=== PATIENT | male | born 1955 | race Caucasian/White ===

== ENCOUNTER 2018-04-17 19:12 | Emergency (ER) | payer OTHER, SELFPAY ==
--- NOTE | 2018-04-17 19:20 | ED_ITS ---
HPI - Arrhythmia/Palpitations General Chief Complaint: Arrhythmia/Palpitations Stated Complaint: WEAKNESS NAUSEA LIGHT HEADED Time Seen by Provider: 04/17/18 19:20 Source: patient Mode of arrival: ambulatory Limitations: no limitations History of Present Illness HPI narrative: Patient is a 62-year-old male here for evaluation of not feeling well for the past several days/weeks. He states that he has noticed that he has had decreased exercise tolerance with shortness of breath with his daily activities. He denies any chest pain. Denies any cough. No fevers. Has had a history of atrial fibrillation in the past. He is not currently on any anticoagulation for this. He states that he came in because his stated that his pulse was very irregular and that he needed to come in to be evaluated. Related Data Previous Rx's Medication Instructions Recorded rivaroxaban [Xarelto] 20 mg PO DAILY #30 tab 04/17/18 Allergies Allergy/AdvReac Type Severity Reaction Status Date / Time No Known Drug Allergies Allergy Verified 04/17/18 20:10 Review of Systems Constitutional Denies chills, Denies headache(s), Denies poor appetite and Denies weight loss Comments: Decreased exercise tolerance ENT Ears, Nose, Mouth, and Throat: Denies dizziness and Denies headache(s) Cardiovascular Denies chest pain, Denies syncope, Denies rapid heart rate, Reports irregular heart rhythm, Denies leg edema, Reports palpitations and Reports dyspnea on exertion Respiratory Denies cough and Reports dyspnea on exertion Gastrointestinal Gastrointestinal: Denies abdominal pain, Denies nausea and Denies vomiting Musculoskeletal Denies myalgias and Denies arthralgias Integumentary/Breasts Denies lesions and Denies rash Neurologic Denies behavioral changes, Denies dizziness, Denies syncope and Denies headache( s) Psychiatric Denies behavioral changes Endocrine Reports palpitations Hematologic/Lymphatic Denies easy bleeding and Denies easy bruising FOR[facility]LY [facility] Medical History Atrial fibrillation (Acute) Melanoma (Acute) Sarcoma (Acute) Surgical History S/P skin cancer resection (Acute) Exam Initial Vital Signs Initial Vital Signs: Vital Signs Temperature 97.6 F 04/17/18 19:22 Pulse Rate 72 04/17/18 19:22 Respiratory Rate 18 04/17/18 19:22 Blood Pressure 123/76 04/17/18 19:22 Pulse Oximetry 98 04/17/18 19:22 Const General: cooperative, healthy appearing, comfortable, well developed, well groomed and No acute distress Orientation: alert, awake and oriented x3 HENMT Head: normal to inspection and normocephalic Resp Effort & Inspection: normal respiratory effort and able to speak in complete sentences Auscultation: clear to auscultation bilaterally Cardio Rate: regular rate Rhythm: abnormal rhythm irregularly irregular Heart Sounds: no murmurs Pulses: radial pulses present GI Inspection: non-distended Palpation: soft, No firm and No tender Skin Lesions: no lesions Rashes: no rashes Neuro General: alert, awake and oriented x3 Extrem General: normal to inspection and capillary refill normal Psych Appearance: grossly normal and well kempt Scores CHADS-VASc Congestive heart failure: no Hypertension: no Age 75 years or older: no Diabetes mellitus: no Stroke, TIA, or TE: no Vascular disease: no Age 65 to 74 years: no Sex category (female): Male CHADS-VASc Score: 0 Course Orders Ordered: ED Orders 04/17/18 19:21 XR chest 1V Stat EKG-12 Lead Stat 04/17/18 19:40 Basic Metabolic Panel Stat Complete Blood Count AUTO DIFF Stat 04/17/18 19:53 CT chest abd pel w con Stat Discontinued Medications Sodium Chloride (Normal Saline 0.9%) 1,000 mls @ 1,000 mls/hr IV BOLUS ONE Stop: 04/17/18 20:52 Last Infusion: 04/17/18 21:23 Dose: 0 mls/hr Admin: 04/17/18 20:06 Dose: 1,000 mls/hr Rivaroxaban (Xarelto) 20 mg PO NOW ONE Stop: 04/17/18 22:13 Last Admin: 04/17/18 22:15 Dose: 20 mg Vital Signs - 8 hr 04/17/18 19:22 04/17/18 20:00 04/17/18 20:30 Temperature 97.6 F Pulse Rate 72 66 75 Respiratory Rate 18 Blood Pressure 123/76 Blood Pressure [Right Arm] 136/86 126/86 Pulse Oximetry 98 97 04/17/18 22:26 Temperature Pulse Rate 70 Respiratory Rate 16 Blood Pressure 138/83 Blood Pressure [Right Arm] Pulse Oximetry 99 MDM - Arrhythmia/Palpitations Lab Data Attestation: I reviewed the patient's lab results. Result diagrams: 04/17/18 19:40 04/17/18 19:40 Lab Results 04/17/18 04/17/18 Range/Units 19:40 19:40 WBC 7.0 (4.5-11.0) X10^3/uL RBC 5.05 (4.5-5.9) X10^6/uL Hgb 16.2 (13.5-17.5) g/dL Hct 46.0 (41-53) % MCV 91.1 (80-100) fL MCH 32.1 (26-34) PG MCHC 35.3 (30-36) % RDW 12.6 (11.6-14.8) % Plt Count 250 (150-400) X10^3/uL Neut % (Auto) 64.4 (50-75) % Lymph % (Auto) 23.2 L (25-40) % Person % (Auto) 10.1 (3-14) % Eos % (Auto) 1.5 L (2-4) % Baso % (Auto) 0.8 (0-2) % Neut # (Auto) 4500 (2076-2967) /uL Sodium 142 (137-145) mmol/L Potassium 4.2 (3.4-5.1) mmol/L Chloride 105 (98-107) mmol/L Carbon Dioxide 28 (22-32) mmol/L BUN 10 (9-20) mg/dL Creatinine 0.80 (0.66-1.25) mg/dL Estimated GFR > 60.0 (>60) mL/min BUN/Creatinine Ratio 12.5 (6-22) Glucose 99 (80-110) mg/dL Calcium 9.5 (8.4-10.2) mg/dL Imaging Data Chest x-ray: Radiologist's impression: [address] [address] XRay Report Signed Patient: PERFECTO DONALDSON EMR#: [id number] : 6Acct:[id number] Age/Sex: 62 / MDate of Service: 04/17/18 Loc: ED Accession Number: [id number] Procedure: XR chest 1V Ordering Provider: Robson Betancourt D.O. PROCEDURE: XR CHEST 1V INDICATIONS: palpitations TECHNIQUE: One view of the chest was acquired. COMPARISON: None. FINDINGS: Surgical changes and devices: None. Lungs and pleura: No pleural effusions or pneumothorax. Numerous soft tissue density nodules or masses are seen scattered throughout bilateral lung taylor measures up to 4.5 x 3.7 cm in size in right upper lung field. Finding is suggestive of extensive pulmonary metastasis.. Mediastinum: Mediastinal contours appear normal. Heart size is normal. Bones and chest wall: No suspicious bony lesions. Overlying soft tissues appear unremarkable. IMPRESSION: Suggestion of extensive metastatic disease throughout bilateral lung taylor. No pneumothorax. Dictated by: Cipriano Alvarez M.D. on 04/17/2018 at 19:49 Approved by: Cipriano Alvarez M.D. on 04/17/2018 at 19:51 CT chest abdomen pelvis: Radiologist's impression: PROCEDURE: CT CHEST ABD PEL W CON INDICATIONS: hx of CA with lung findings concern for mets TECHNIQUE: After the administration of intravenous contrast, 5 mm thick sections acquired from the lung apices to the symphysis. 2.5 mm thick coronal and sagittal reformats were acquired. Additional 7 mm thick coronal maximum intensity projection (MIP) reformats acquired through the lungs. Optional 10-minute delayed imaging may be performed from the kidneys to the bladder. For radiation dose reduction, the following was used: automated exposure control, adjustment of mA and/or kV according to patient size. COMPARISON: [facility], , XR CHEST 1V, 04/17/2018, 19:29. FINDINGS: Image quality: Excellent. CHEST: Lungs: Innumerable soft tissue density nodules and masses are seen scattered throughout bilateral lung taylor measures up to 4 x 4.7 x 3.8 cm in size in right upper lobe posterior aspect. Largest lesion in left lung field measures 2.1 x 2.2 cm in size in posterior aspect of left lower lobe. Finding is consistent with extensive pulmonary metastatic disease. No pneumothorax or hemothorax. Central and peripheral airways appear patent and normal in caliber. Mediastinum: No mediastinal hematomas. Heart size is normal. No pericardial effusion. Thoracic aorta and pulmonary arteries demonstrate normal size and enhancement. Subcentimeter lymph nodes are seen scattered in mediastinum and right hilar region measures up to 8 mm in short axis diameter. Esophagus is normal in caliber. There is a small hiatal hernia. Chest wall: No rib fractures. No subcutaneous emphysema. No axillary or supraclavicular adenopathy. Thyroid gland is within normal limits. ABDOMEN: Solid organs: Liver is normal in size and enhancement. Mild hepatic stale ptosis is seen. Gallbladder is surgically absent. Biliary system is non-dilated. Pancreas enhances normally, without transection. Spleen is normal in size and enhancement, without lacerations. No adrenal hematomas. Both kidneys enhance normally, without hydronephrosis or renal stones. Small bilateral renal cysts are seen measures up to 1.2 cm in size in midpole of left kidney. No perinephric fat stranding or fluid. Peritoneum and bowel: No free fluid or air. Unenhanced bowel loops demonstrate normal wall thickness and caliber. Mild sigmoid diverticulosis is seen, no CT evidence of acute diverticulitis. Nodes and vessels: No retroperitoneal or mesenteric adenopathy. Aorta and inferior vena cava are normal in size and enhancement. Miscellaneous: No ventral hernias. PELVIS: Genitourinary: Bladder wall thickness is normal. Miscellaneous: No inguinal hernias or adenopathy. Bones: Pelvic ring and hip joints appear intact. No vertebral compression fractures. 9 mm lytic lesion with sclerotic margin is noted involving left iliac bone adjacent to sacroiliac joint. 2.1 x 1.4 cm lytic area involving right iliac bone is seen. There is also a 2 x 0.8 cm lytic area involving the lateral aspect of right iliac bone. 1.4 cm lytic area is seen in right acetabular roof. Suggestion of a 2.1 cm lytic lesion involving posterior aspect of T11 vertebral body is also seen extending to right posterior element. IMPRESSION: 1. Innumerable bilateral pulmonary nodules and masses with the largest lesion in right upper lobe concerning for extensive pulmonary metastatic disease. 2. Multiple lytic lesions scattered in bony pelvis and T11 vertebral body as described above suspicious for bony metastatic disease. 3. Subcentimeter lymph nodes are seen in mediastinum. No evidence of abnormally enlarged lymph nodes seen in chest, abdomen or pelvis. 4. No bowel obstruction. No free fluid or free air. Dictated by: Cipriano Alvarez M.D. on 04/17/2018 at 20:58 Approved by: Cipriano Alvarez M.D. on 04/17/2018 at 21:10 ECG Data Attestation: I personally reviewed and interpreted this ECG as follows: Prior ECG tracings: not available for review Interpretation: Atrial fibrillation Ventricular rate is 75 Normal axis Normal QRS Normal QTC No ST T wave changes MDM Narrative Medical decision making narrative: Patient is very healthy appearing. 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 He also had melanoma on his left cheek that was resected approximately 1 year ago. He is new to the area. Does not have a primary care doctor. It appears that he has been in atrial fibrillation in the past. From his history it sounds like this is paroxysmal AFib. He is in atrial fibrillation today but is rate controlled. He states that he thinks that with his last episode of atrial fibrillation he converted on his own. Patient presents today with fairly vague symptoms. After his EKG showed that he was in atrial fibrillation and chest x-ray was ordered. This did show bilateral nodules. Given his history of melanoma this is very concerning for metastatic disease. I ordered a CT scan of his chest abdomen pelvis which is very concerning for extensive metastatic disease to include his lungs and also his bone. I did discuss all of this with the patient. His was at bedside. I discussed the case with Dr. Greenfield with Oncology as well. I gave the patient information to the oncologist. He states that his office would call the patient on Friday morning for a follow-up in to start treatment. I did inform the patient that I suspect that findings we found on the CT scan today and was like the results of his exercise intolerance over the past days/ weeks. I also informed him that since we are unsure when he or started atrial fibrillation cardioversion here in the emergency department was not appropriate. He does have a low chads score however I feel starting him on anticoagulation is not unreasonable given his extensive metastatic disease. We did discuss the risks and benefits of this medication. He was given a 1st dose here in the ER and a prescription to fill tomorrow. We also discussed the importance of him contacting his insurance company to make sure that he is established here in this area and to call the local primary care groups to establish primary care follow-up. She was given return precautions. He expressed understanding of this extensive discussion of the findings on his CT scan today. Expressed agreement plan. Discharge Plan Departure Patient Disposition: Home Clinical Impression: Atrial fibrillation, Lung mass Discharge Date/Time: 04/17/18 22:28 Interventions: ED Discharge Assessment Last Done: 04/17/18 22:26 Instructions: DI for Atrial Fibrillation Activity Restrictions/Additional Instructions: The CT scans that were performed today is very concerning for cancer metastasis to your lungs and also your bone. I discussed her case with Dr. Greenfield with Oncology who took down your information and expect a call from his office on Friday morning. I would also highly recommend you contact your insurance company and set up a primary care doctor in the local area. We also started you on any anticoagulation secondary to the atrial fibrillation. This does need to be followed up by her primary doctor and also a brass chaser. You can return to the emergency department at any time for new or worsening symptoms Prescriptions: New rivaroxaban [Xarelto] 20 mg tablet 20 mg PO DAILY Qty: 30 RF: 0 Stand Alone Forms: Work/School Restrictions
[2018-04-17 19:22] VITALS: BP 123/76; PULSE 72; RESP 18; TEMP 36.4; O2SAT 98; BMI 24.1
--- NOTE | 2018-04-17 19:47 | PC.NURSE ---
pt reports about two weeks ago he helped his duaghter move and hurt his back. since then he has been fatigued and experiencing loss of apetite and heart palpations. pt has hx of afib but it was a long time ago and he has no memory about what was done to him for his a fib. reports taking an 81mg asprin po today before coming in. reports no other anticoags taken.
--- NOTE | 2018-04-17 19:53 | DI.CT.S_ITS ---
PROCEDURE: CT CHEST ABD PEL W CON INDICATIONS: hx of CA with lung findings concern for mets TECHNIQUE: After the administration of intravenous contrast, 5 mm thick sections acquired from the lung apices to the symphysis. 2.5 mm thick coronal and sagittal reformats were acquired. Additional 7 mm thick coronal maximum intensity projection (MIP) reformats acquired through the lungs. Optional 10-minute delayed imaging may be performed from the kidneys to the bladder. For radiation dose reduction, the following was used: automated exposure control, adjustment of mA and/or kV according to patient size. COMPARISON: [facility], CR, XR CHEST 1V, 04/17/2018, 19:29. FINDINGS: Image quality: Excellent. CHEST: Lungs: Innumerable soft tissue density nodules and masses are seen scattered throughout bilateral lung taylor measures up to 4 x 4.7 x 3.8 cm in size in right upper lobe posterior aspect. Largest lesion in left lung field measures 2.1 x 2.2 cm in size in posterior aspect of left lower lobe. Finding is consistent with extensive pulmonary metastatic disease. No pneumothorax or hemothorax. Central and peripheral airways appear patent and normal in caliber. Mediastinum: No mediastinal hematomas. Heart size is normal. No pericardial effusion. Thoracic aorta and pulmonary arteries demonstrate normal size and enhancement. Subcentimeter lymph nodes are seen scattered in mediastinum and right hilar region measures up to 8 mm in short axis diameter. Esophagus is normal in caliber. There is a small hiatal hernia. Chest wall: No rib fractures. No subcutaneous emphysema. No axillary or supraclavicular adenopathy. Thyroid gland is within normal limits. ABDOMEN: Solid organs: Liver is normal in size and enhancement. Mild hepatic stale ptosis is seen. Gallbladder is surgically absent. Biliary system is non-dilated. Pancreas enhances normally, without transection. Spleen is normal in size and enhancement, without lacerations. No adrenal hematomas. Both kidneys enhance normally, without hydronephrosis or renal stones. Small bilateral renal cysts are seen measures up to 1.2 cm in size in midpole of left kidney. No perinephric fat stranding or fluid. Peritoneum and bowel: No free fluid or air. Unenhanced bowel loops demonstrate normal wall thickness and caliber. Mild sigmoid diverticulosis is seen, no CT evidence of acute diverticulitis. Nodes and vessels: No retroperitoneal or mesenteric adenopathy. Aorta and inferior vena cava are normal in size and enhancement. Miscellaneous: No ventral hernias. PELVIS: Genitourinary: Bladder wall thickness is normal. Miscellaneous: No inguinal hernias or adenopathy. Bones: Pelvic ring and hip joints appear intact. No vertebral compression fractures. 9 mm lytic lesion with sclerotic margin is noted involving left iliac bone adjacent to sacroiliac joint. 2.1 x 1.4 cm lytic area involving right iliac bone is seen. There is also a 2 x 0.8 cm lytic area involving the lateral aspect of right iliac bone. 1.4 cm lytic area is seen in right acetabular roof. Suggestion of a 2.1 cm lytic lesion involving posterior aspect of T11 vertebral body is also seen extending to right posterior element. IMPRESSION: 1. Innumerable bilateral pulmonary nodules and masses with the largest lesion in right upper lobe concerning for extensive pulmonary metastatic disease. 2. Multiple lytic lesions scattered in bony pelvis and T11 vertebral body as described above suspicious for bony metastatic disease. 3. Subcentimeter lymph nodes are seen in mediastinum. No evidence of abnormally enlarged lymph nodes seen in chest, abdomen or pelvis. 4. No bowel obstruction. No free fluid or free air. Dictated by: Cipriano Alvarez M.D. on 04/17/2018 at 20:58 Approved by: Cipriano Alvarez M.D. on 04/17/2018 at 21:10
[2018-04-17 19:59] LABS: Add Manual Diff / Slide Review NO; Basophils Percent Auto 0.8 % (0-2); Eosinophils Percent Auto 1.5 % (2-4); Hemoglobin 16.2 g/dL (13.5-17.5); Lymphocytes Percent Auto 23.2 % (25-40); Mean Corpuscular HGB Conc 35.3 % (30-36); Mean Corpuscular Hemoglobin 32.1 PG (26-34); Mean Corpuscular Volume 91.1 fL (80-100); Monocytes Percent Auto 10.1 % (3-14); Neutrophils Absolute Auto 4500 /uL (3000-5900); Neutrophils Percent Auto 64.4 % (50-75); Platelet Count 250 X10^3/uL (150-400); Red Blood Cell Count 5.05 X10^6/uL (4.5-5.9); Red Cell Distribution Width 12.6 % (11.6-14.8)
[2018-04-17 20:00] VITALS: BP 136/86; PULSE 66; O2SAT 97
[2018-04-17 20:04] LABS: BUN Creatinine Ratio 12.5 (6-22); Blood Urea Nitrogen 10 mg/dL (9-20); Calcium 9.5 mg/dL (8.4-10.2); Carbon Dioxide 28 mmol/L (22-32); Chloride 105 mmol/L (98-107); Estimated Glomerular Filt Rate > 60.0 mL/min (>60); Glucose 99 mg/dL (80-110); HEMOLYSIS 17 (0-50); Potassium 4.2 mmol/L (3.4-5.1); Sodium 142 mmol/L (137-145)
[2018-04-17] MEDS: SODIUM CHLORIDE 0.9% 1,000 ML 1000 ML IV (20:06)
[2018-04-17 20:30] VITALS: BP 126/86; PULSE 75
[2018-04-17] MEDS: RIVAROXABAN 10 MG TABLET 20 MG PO (22:15)
[2018-04-17 22:26] VITALS: BP 138/83; PULSE 70; RESP 16; O2SAT 99
== END 2018-04-17 22:28 | disposition home or self-care (01) ==
PROVIDERS: Emergency Provider Emergency Medicine
DX: I48.91 Unspecified atrial fibrillation (principal); R91.8 Other nonspecific abnormal finding of lung field
CPT/HCPCS: 36591; 71045; 71260; 74177; 80048; 85025; 93005; 96360; 99283; 99285; Q9967

== ENCOUNTER → 2018-06-30 11:52 | Outpatient (CLI) | payer OTHER, SELFPAY ==
--- NOTE | 2018-06-30 12:21 | DI.RAD.S_ITS ---
PROCEDURE: XR RIBS RT 2V INDICATIONS: AND BACK PAIN TECHNIQUE: 3 views of the right ribs were acquired. COMPARISON: [facility], CT, CT CHEST ABD PEL W CON, 04/17/2018, 20:19. FINDINGS: Innumerable pulmonary nodules are again noted. There are no definite or displaced rib fractures. A lucency projects within the right 11th rib, measuring approximately 2 cm suggestive of lytic osseous metastasis. IMPRESSION: No definite fracture seen. Probable right 11th rib lytic osseous metastasis. This could be confirmed with cross-sectional imaging Innumerable pulmonary nodules as before. Dictated by: Ulices Pop M.D. on 06/30/2018 at 14:05 Approved by: Ulices Pop M.D. on 06/30/2018 at 14:12
--- NOTE | 2018-06-30 12:21 | DI.RAD.S_ITS ---
PROCEDURE: XR LUMBAR SPINE 2-3V INDICATIONS: AND BACK PAIN TECHNIQUE: 3 views of the lumbar spine were acquired. COMPARISON: Located [facility], CT, CT CHEST ABD PEL W CON, 04/17/2018, 20:19. FINDINGS: Bones: 4 nonrib-bearing lumbar vertebra and hypoplastic ribs. No fracture or focal osseous destruction. Diffuse facet arthropathy. Trace retrolisthesis of L1 on L2. Moderate narrowing of the L5-S1 disc space as well as the T12-L1 disc space. Dextrocurvature is noted. Soft tissues: Overlying bowel gas pattern is normal. No suspicious soft tissue calcifications. IMPRESSION: Multilevel thoracolumbar disc degeneration most pronounced at T12-L1 and L5-S1. Diffuse facet arthropathy. Dextro scoliosis. Hypoplastic ribs and 4 nonrib-bearing vertebra. Dictated by: Ulices Pop M.D. on 06/30/2018 at 13:56 Approved by: Ulices Pop M.D. on 06/30/2018 at 14:03
== END ==
PROVIDERS: PCP Family Medicine; Visit Provider Family Medicine
DX: R07.81 Pleurodynia (principal); M54.9 Dorsalgia, unspecified; M51.35 Other intervertebral disc degeneration, thoracolumbar region; M51.37 Other intervertebral disc degeneration, lumbosacral region; M47.816 Spondylosis without myelopathy or radiculopathy, lumbar region; M41.9 Scoliosis, unspecified; R91.8 Other nonspecific abnormal finding of lung field
CPT/HCPCS: 71100; 72100

== ENCOUNTER → 2020-08-18 08:35 | Outpatient (CLI) | payer MEDICARE, SELFPAY ==
[2020-08-18] MEDS: COVID-19 VACC #1, MRNA(MOD) 100 MCG/0.5 ML VIAL IM (08:48)
== END ==
PROVIDERS: PCP Family Medicine; Visit Provider Internal Medicine
DX: Z23 Encounter for immunization (principal)
CPT/HCPCS: 0011A; 91301

== ENCOUNTER → 2020-09-14 15:40 | Outpatient (CLI) | payer MEDICARE, SELFPAY ==
[2020-09-14] MEDS: COVID-19 VACC #2, MRNA(MOD) 100 MCG/0.5 ML VIAL IM (15:44)
== END ==
PROVIDERS: PCP Family Medicine; Visit Provider Internal Medicine
DX: Z23 Encounter for immunization (principal)
CPT/HCPCS: 0012A; 91301

== ENCOUNTER 2021-06-27 16:05 | Observation (INO) | payer MEDICARE, OTHER, SELFPAY ==
[2021-06-27] VITALS (9 sets, daily range): BP systolic 119–143; BP diastolic 69–88; PULSE 51–67; RESP 16–21; TEMP 36.7–36.8; O2SAT 95–100; BMI 24.4; BMI 24.8
--- NOTE | 2021-06-27 | DI.US.S_ITS ---
PROCEDURE: US CAROTID DOPPLER BI INDICATIONS: CEREBRAL VASCULAR ACCIDENT TECHNIQUE: Color and pulse Doppler interrogation was performed of both carotid systems, with image documentation and velocity measurements. COMPARISON: Outside [facility], CT, CT SOFT TISSUE NECK WITH CONTRAST, 12/29/2018, 11:39. FINDINGS: Stenosis calculations are based on SRU (Society of Radiologists in Ultrasound) criteria. Right side: Brachial blood pressure: 115/67 mm Hg. Common carotid artery peak systolic velocity: 104 cm/sec. Internal carotid artery peak systolic velocity: 72 cm/sec. Internal carotid artery end diastolic velocity: 25 cm/sec. External carotid artery peak systolic velocity: 98 cm/sec. ICA/CCA peak systolic ratio: 0.7. Lyle scale imaging description: No significant calcified plaque. Percent internal carotid artery stenosis: Less than 50% stenosis. Vertebral artery: Flow direction is antegrade. Left side: Brachial blood pressure: 121/69 mm Hg. Common carotid artery peak systolic velocity: 98 cm/sec. Internal carotid artery peak systolic velocity: 76 cm/sec. Internal carotid artery end diastolic velocity: 29 cm/sec. External carotid artery peak systolic velocity: 91 cm/sec. ICA/CCA peak systolic ratio: 0.8. Lyle scale imaging description: No significant calcified plaque. Percent internal carotid artery stenosis: Less than 50% stenosis. Vertebral artery: Flow direction is antegrade. IMPRESSION: 1. Right ICA: Less than 50% stenosis. 2. Left ICA: Less than 50% stenosis. 3. Antegrade flow in the bilateral vertebral arteries. Dictated by: Amauri Lebron M.D. on 06/28/2021 at 9:14 Approved by: Amauri Lebron M.D. on 06/28/2021 at 9:19
--- NOTE | 2021-06-27 | DI.ECHO.S_ITS ---
[facility] +---------+ : : [address] : : : : [id number] : : : : Phone: [phone]+ Echocardiogram Report + + :Name: PERFECTO DONALDSON Study Date: 06/28/2021 Height: 73 in : :[facility] ReadingLocation: Weight: 195 lb : : Gender: Male BSA: 2.1 m2 : :: 1955 Age: 65 yrs BP: 126/73 mmHg: :Reason For Study: CVA : :Ordering Physician: PRESLEY, : :COMFORT Mc Performed By: Akilah Mclaughlin : :Referring: COMFORT SHERWOOD : + + Interpretation Summary Left ventricular systolic function appears normal without any focal wall motion abnormality with an estimated ejection fraction of 55 to 65% with considerable scpt-sh-rper variability due to the atrial fibrillation. Left ventricular size and wall thickness appear normal. Assessment of diastolic function is challenging in the setting of atrial fibrillation but there is no evidence for significantly increased filling pressures. The right ventricle is at the upper limits of normal with normal systolic function. Right ventricular systolic pressure cannot be estimated but CVP is likely around 3 mmHg. There is severe left atrial enlargement and moderate right atrial enlargement. There is no evidence for an interatrial shunt based on Doppler interrogation and injection of echo saline contrast. There is mild mitral regurgitation but no other significant valvular abnormality. The aortic root and ascending aorta are borderline enlarged. The patient was in atrial fibrillation at 48-71 bpm during the exam which itself is a potential source of CVA. Procedure: A two-dimensional transthoracic echocardiogram with color flow and Doppler was performed. The study quality was technically adequate. There is no prior echocardiogram noted for this patient. A saline contrast injection was performed to assess for cardiac shunting. The injection was performed through an intravenous line in the right arm. The patient was in atrial fibrillation with heart rates between 48-71 bpm during the exam. Left Ventricle: The left ventricle is normal in size and wall thickness. Left ventricular systolic function appears normal without focal wall motion abnormalities. Left ventricular ejection fraction is estimated to be 55 to 65% with considerable kade-ta-eogb variability due to atrial fibrillation. Diastolic function could not be accurately assessed due to atrial fibrillation. Right Ventricle: The right ventricle is borderline dilated. The right ventricular systolic function is normal. Atria: The left atrium is severely dilated. The right atrium is moderately dilated. There is no Doppler evidence for an interatrial shunt. Injection of contrast documented no interatrial shunt. Mitral Valve: The mitral valve leaflets appear normal. There is no evidence of stenosis, fluttering, or prolapse. There is mild mitral regurgitation. Aortic Valve: The aortic valve is trileaflet. The aortic valve opens well. There is no aortic valve stenosis. No aortic regurgitation is present. Tricuspid Valve: The tricuspid valve is normal in structure and function. There is trace tricuspid regurgitation. Pulmonary artery pressures cannot be estimated because of the lack of a measurable TR jet velocity but the IVC suggests a CVP of around 3 mmHg. Pulmonic Valve: The pulmonic valve leaflets are thin and pliable; valve motion is normal. There is no pulmonic valvular regurgitation. There is no other significant valvular heart disease. Great Vessels: The aortic root is borderline dilated. The ascending aorta is at the upper limits of normal in size. The IVC is of normal diameter and collapses greater than 50% with a sniff. This suggests a low right atrial pressure of 3 mm Hg. Pericardium/ Pleura There is no pericardial effusion. There is no pleural effusion. MMode/2D Measurements & Calculations LVIDd: 4.2 cm LVOT diam: 2.0 cm LVIDs: 2.7 cm Ao root diam: 3.9 cm FS: 37.2 % asc Aorta Diam: 3.5 cm IVSd: 0.92 cm Ao Arch Diam (Prox Trans): 3.2 cm LVPWd: 0.91 cm LV dominguez. diameter/BSA (cm/m^2): 2.0 LV sys. diameter/BSA (cm/m^2): 1.2 LA A2 area: 33.6 cm2 RA long axis: 6.1 cm LA A4 area: 26.7 cm2 RA area: 25.1 cm2 LA length (vol): 6.3 cm RA vol: 87.3 ml LA vol: 120.7 ml RA : 41.0 ml/m2 LA vol index: 56.7 ml/m2 IVC diam: 2.2 cm RVD1 (basal): 4.3 cm TAPSE: 2.2 cm Doppler Measurements & Calculations Ao V2 max: 108.3 cm/sec LVOT Max Ulises: 95.0 cm/sec Ao V2 mean: 75.8 cm/sec LV V1 max P.6 mmHg Ao max P.7 mmHg LV V1 VTI: 18.2 cm Ao mean P.6 mmHg ANGELIQUE(I,D): 2.8 cm2 Ao V2 VTI: 20.5 cm ANGELIQUE(V,D): 2.8 cm2 sev ratio: 0.89 ANGELIQUE indexed to BSA (cm^2/m^2): 1.3 MV E max ulises: 73.8 cm/sec PA V2 max: 96.1 cm/sec MV A max ulises: 0.54 cm/sec PA V2 mean: 62.8 cm/sec MV E/A: 136.5 PA mean P.8 mmHg Med Peak E' Ulises: 11.2 cm/sec PA pr(Accel): 31.0 mmHg E/E' med: 6.6 Lat Peak E' Ulises: 16.7 cm/sec E/E' lat: 4.4 E/e' average: 5.5 MV dec time: 0.17 sec SV(LVOT): 57.9 ml Reading Physician:11:35 AM
--- NOTE | 2021-06-27 16:22 | DI.CT.S_ITS ---
PROCEDURE: CT HEAD/BRAIN WO CON INDICATIONS: Left-sided weakness TECHNIQUE: Noncontrast 4.5 mm thick angled axial sections acquired from the foramen magnum to the vertex, with coronal and sagittal reformats. For radiation dose reduction, the following was used: automated exposure control, adjustment of mA and/or kV according to patient size. COMPARISON: Outside Film, MR, MR BRAIN WITH/WITHOUT CONTRAST, 04/20/2019, 9:02. FINDINGS: Image quality: Excellent. CSF spaces: Basal cisterns are patent. No extra-axial fluid collections. Ventricles are normal in size and shape. Brain: No midline shift. Left frontal lobe hyperdense lesion measuring 0.6 cm, (2/24). Right parietal lobe hyperdense lesion measuring 0.8 cm, (2/21). These appear unchanged compared to MRI brain 04/20/2019. These lesions are intrinsically T1 hyperintense on the prior MRI. No new lesions identified. No area of hypodensity in a large vascular distribution to suggest acute infarction. Periventricular hypodensity consistent with chronic microvascular ischemic change. Age-related parenchymal loss. Skull and face: Calvarium and visualized facial bones are intact, without suspicious lesions identified. Sinuses: Visualized sinuses and mastoids are clear. IMPRESSION: No acute intracranial abnormality demonstrated. Left frontal lobe and right parietal lobe hyperdense lesions appear unchanged compared to MRI from 2019. These are most consistent with prior melanoma metastases. No new lesions identified. Consider MRI brain with IV contrast for further evaluation. Dictated by: Amauri Lebron M.D. on 06/27/2021 at 16:34 Approved by: Amauri Lebron M.D. on 06/27/2021 at 16:40
--- NOTE | 2021-06-27 16:49 | DI.MRI.S_ITS ---
PROCEDURE: MR HEAD/BRAIN WO/W CON INDICATIONS: Melanoma with brain Mets and left-sided weakness TECHNIQUE: Noncontrast axial T1 spin echo, axial T2 fast spin echo, sagittal and axial FLAIR, coronal T2 fast spin echo, axial gradient echo, axial diffusion and ADC through the brain. After the administration of contrast, axial and coronal T1 spin echo with fat saturation through the brain. COMPARISON: [facility], CT, CT HEAD/BRAIN WO CON, 06/27/2021, 16:30. Outside Film, MR, MR BRAIN WITH/WITHOUT CONTRAST, 04/20/2019, 9:02. FINDINGS: Image quality: Excellent. CSF spaces: Basal cisterns are patent. No extra-axial fluid collections. Ventricles are normal in size and shape. Brain: No midline shift. No intracranial bleeds or masses. High T1 intensity focus within the right posteromedial parietal lobe, corresponding to the site of melanoma seen previously which demonstrates postcontrast enhancement on the current examination, which is decreased in prominence. There is cerebral volume loss for age. There is periventricular white matter chronic small vessel ischemic change. The brainstem appears normal. Diffusion-weighted images demonstrate a moderate size region of elevated signal intensity within the right frontoparietal lobe junction which demonstrates low ADC map, and mild FLAIR signal elevation. No chronic ischemic insults. Normal intravascular flow voids are present. Skull and face: Calvarial marrow is normal in signal. Orbits appear normal. Sinuses: Sinuses and mastoids appear clear. IMPRESSION: 1. Early subacute infarct within the right frontoparietal lobe. 2. Decreased right parietal lobe melanoma metastasis. Dictated by: Viral Cerna M.D. on 06/27/2021 at 17:05 Approved by: Viral Cerna M.D. on 06/27/2021 at 17:08
--- NOTE | 2021-06-27 16:55 | ED.NEUROSD ---
HPI - Neuro Symptoms/Deficit General Chief Complaint: Neuro Symptoms/Deficit Stated Complaint: sudden left sided numbness Time Seen by Provider: 06/27/21 16:22 Source: patient Mode of arrival: Ambulatory History of Present Illness HPI Narrative: Patient is a 65-year-old male. Not on anticoagulation. Has a distant history of atrial fibrillation. Has known metastatic melanoma. Is currently undergoing treatment for this. Here for evaluation of symptoms that occurred prior to arrival. He states that he was standing in his kitchen. He states that his left hand started to go numb. He had difficulty with coordination. His also states that he was having issues with walking. There was no speech issues. Patient again aspirin prior to arrival. Upon arrival his symptoms have completely resolved. The time my evaluation he states that he is feeling back to normal. No headache. No vision changes. No chest pain. No shortness of breath. No palpitations. No abdominal pain. No nausea vomiting. Currently no neurologic symptoms. On Anticoagulants: No Related Data Previous Rx's Medication Instructions Recorded rivaroxaban 20 mg tablet (Xarelto) 20 mg PO DAILY #30 tab 04/17/18 Allergies Allergy/AdvReac Type Severity Reaction Status Date / Time No Known Drug Allergies Allergy Verified 04/17/18 20:10 Review of Systems Constitutional Constitutional: Denies fever(s) and Denies headache(s) Eyes Eyes: Denies change in vision ENT Ears, Nose, Mouth, and Throat: Denies headache(s) Cardiovascular Cardiovascular: Denies chest pain and Denies dyspnea Respiratory Respiratory: Denies dyspnea Gastrointestinal Gastrointestinal: Denies abdominal pain Genitourinary Genitourinary: Reports system reviewed and no additional complaints, except as documented Musculoskeletal Musculoskeletal: Reports system reviewed and no additional complaints, except as documented Integumentary/Breasts Skin/Breast: Reports system reviewed and no additional complaints, except as documented Neurologic Neurologic: Reports system reviewed and no additional complaints, except as documented, Reports as per HPI and Denies headache(s) Hematologic/Lymphatic On Anticoagulants: No Allergic/Immunologic Allergic/Immunologic: Reports system reviewed and no additional complaints, except as documented Patient History Medical History (Updated 06/27/21 @ 18:55 by Robson Betancourt DO) Atrial fibrillation Melanoma Sarcoma Surgical History S/P skin cancer resection Social History Smoking Status: Never smoker Smoking Status: Never smoker alcohol intake frequency: a few times a month Substance Use Type: marijuana Exam Initial Vital Signs Initial Vital Signs: Vital Signs Temperature 98.2 F 06/27/21 16:16 Pulse Rate 65 06/27/21 16:16 Respiratory Rate 20 06/27/21 16:16 Blood Pressure 138/69 06/27/21 16:16 Pulse Oximetry 100 06/27/21 16:16 Const General: cooperative, comfortable and well developed Limitations: mental status not altered HENMT Head: normal to inspection and normocephalic Chest Chest: normal inspection of the chest Resp Effort & Inspection: normal respiratory effort Auscultation: clear to auscultation bilaterally Cardio Rate: regular rate Rhythm: regular rhythm GI Inspection: non-distended Palpation: soft Back/Spine/Pelvis Back: normal to inspection Skin General: no rashes or lesions noted Neuro General: patient alert, patient awake, patient oriented x3 and moves all extremities Cognition: normal cognition Speech: speech normal Motor: muscle tone normal throughout Sensory Exam: no sensory deficits noted Coordination: abinwb-cp-dyyl test normal Extrem General: normal to inspection and capillary refill normal Psych Appearance: grossly normal and well kempt Scores GCS Aron coma scale eye opening: Spontaneous Aron coma scale verbal response: Orientated [place] coma scale motor response: Obey commands Aron coma scale total score: 15 NIH Stroke Scale Level of Conciousness: Alert, keenly responsive Ask month/age: Answers both questions correctly. Open/close eyes, close hand: Performs both tasks correctly Best gaze horizontal: Normal Visual taylor: No visual loss Facial palsy: Normal symetrical movement Left arm drift: No drift for full 10 sec Right arm drift: No drift for full 10 sec Left leg drift: No drift for full 5 sec Right leg drift: No drift for full 5 sec Limb ataxia: Absent Sensory on face/arms/legs: Normal, no sensory loss Best language: No aphasia, normal Dysarthria: Normal Extinction or inattention: No abnormality Total NIH Stroke scale score: 0 Course Orders Ordered: ED Orders 06/27/21 16:22 CT head/brain wo con Stat 06/27/21 16:49 MR head/brain wo/w con Stat 06/27/21 16:50 Complete Blood Count AUTO DIFF Stat Comprehensive Metabolic Panel Stat Lipase Stat Partial Thromboplastin Time Stat Prothrombin Time INR Stat 06/27/21 16:55 COVID19 - ADMIT (SYRUPER swab/PCR) Stat 06/27/21 18:04 EKG-12 Lead Stat 06/27/21 18:59 Education, smoking cessation ONGOING Naloxone HCl (Naloxone 0.4 Mg/Ml Vial) 0.2 mg IV Q2MIN PRN PRN Reason: Opiate Reversal Discontinued Medications Aspirin (Aspirin 81 Mg Chew Tab) 243 mg PO NOW ONE Stop: 06/27/21 18:35 Last Admin: 06/27/21 19:00 Dose: 243 mg Documented by: ANTHONY Vital Signs Vital signs: Vital Signs - 8 hr 06/27/21 16:16 06/27/21 18:04 06/27/21 18:30 Temperature 98.2 F Pulse Rate 65 66 57 L Respiratory Rate 20 17 18 Blood Pressure 138/69 121/88 Pulse Oximetry 100 99 95 MDM - Neuro Symptoms/Deficit Lab Data Attestation: I reviewed the patient's lab results. Result diagrams: 06/27/21 16:50 06/27/21 16:50 Labs: Lab Results 06/27/21 06/27/21 06/27/21 Range/Units 16:50 16:50 16:50 WBC 4.4 L (4.5-11.0) X10^3/uL RBC 4.63 (4.5-5.9) X10^6/uL Hgb 15.4 (13.5-17.5) g/dL Hct 43.3 (41-53) % MCV 93.5 (80-100) fL MCH 33.2 (26-34) PG MCHC 35.5 (30-36) % RDW 12.9 (11.6-14.8) % Plt Count 182 (150-400) X10^3/uL Neut % (Auto) 62.1 (50-75) % Lymph % (Auto) 26.2 (25-40) % [place] % (Auto) 9.5 (3-14) % Eos % (Auto) 1.5 L (2-4) % Baso % (Auto) 0.7 (0-2) % Neut # (Auto) 2700 (8055-9643) /uL Lymph # (Auto) 1200 (3225-5775) /uL [place] # (Auto) 400 (0-900) /uL Eos # (Auto) 100 (0-450) /uL Baso # (Auto) 0 (0-100) /uL PT 10.6 (10.1-12.7) SECONDS INR 0.9 (0.9-1.3) APTT 30 (26.4-36.2) SECONDS Sodium 139 (137-145) mmol/L Potassium 3.8 (3.4-5.1) mmol/L Chloride 106 (98-107) mmol/L Carbon Dioxide 27 (22-32) mmol/L BUN 10 (9-20) mg/dL Creatinine 0.74 (0.66-1.25) mg/dL Estimated GFR > 60.0 (>60) mL/min BUN/Creatinine Ratio 13.5 (6-22) Glucose 96 (80-110) mg/dL Calcium 9.2 (8.4-10.2) mg/dL Total Bilirubin 0.7 (0.2-1.3) mg/dL AST 29 (17-59) IU/L ALT 22 (<50) IU/L Alkaline Phosphatase 75 (38-126) U/L Total Protein 6.8 (6.3-8.2) g/dL Albumin 4.2 (3.5-5.0) g/dL Globulin 2.6 (1.7-4.1) g/dL Albumin/Globulin Ratio 1.6 (1.0-2.8) Lipase 79 (23-300) U/L SARS-CoV-2 (PCR) (Negative) 06/27/21 Range/Units 16:55 WBC (4.5-11.0) X10^3/uL RBC (4.5-5.9) X10^6/uL Hgb (13.5-17.5) g/dL Hct (41-53) % MCV (80-100) fL MCH (26-34) PG MCHC (30-36) % RDW (11.6-14.8) % Plt Count (150-400) X10^3/uL Neut % (Auto) (50-75) % Lymph % (Auto) (25-40) % [place] % (Auto) (3-14) % Eos % (Auto) (2-4) % Baso % (Auto) (0-2) % Neut # (Auto) (4635-9347) /uL Lymph # (Auto) (2769-8118) /uL [place] # (Auto) (0-900) /uL Eos # (Auto) (0-450) /uL Baso # (Auto) (0-100) /uL PT (10.1-12.7) SECONDS INR (0.9-1.3) APTT (26.4-36.2) SECONDS Sodium (137-145) mmol/L Potassium (3.4-5.1) mmol/L Chloride (98-107) mmol/L Carbon Dioxide (22-32) mmol/L BUN (9-20) mg/dL Creatinine (0.66-1.25) mg/dL Estimated GFR (>60) mL/min BUN/Creatinine Ratio (6-22) Glucose (80-110) mg/dL Calcium (8.4-10.2) mg/dL Total Bilirubin (0.2-1.3) mg/dL AST (17-59) IU/L ALT (<50) IU/L Alkaline Phosphatase (38-126) U/L Total Protein (6.3-8.2) g/dL Albumin (3.5-5.0) g/dL Globulin (1.7-4.1) g/dL Albumin/Globulin Ratio (1.0-2.8) Lipase (23-300) U/L SARS-CoV-2 (PCR) Negative (Negative) Urine Dip Bedside Urine Glucose Negative Bedside Urine Bilirubin - Negative Bedside Urine Ketone - Negative Urine Specific Sandy 1.015 Bedside Urine Occult Blood - Negative Bedside Urine pH 6.0 Bedside Urine Protein - Negative Bedside Urine Urobilinogen 0.2 Bedside Urine Nitrite - Negative Bedside Urine Leukocytes - Negative Esterase Imaging Data CT scan - head: Radiologist's Impression: [address] [address] [address] Scan Report Signed Patient: Dillon Joaquin MR#: [id number] : 1955 Acct:[id number] Age/Sex: 65 / M Date of Service: 06/27/21 Loc: ED Accession Number: [id number] ?? Procedure: CT head/brain wo con Ordering Provider: Robson Betancourt D.O. PROCEDURE:? CT HEAD/BRAIN WO CON ? INDICATIONS:? Left-sided weakness ? TECHNIQUE:? Noncontrast 4.5 mm thick angled axial sections acquired from the foramen magnum to the vertex, with coronal and sagittal reformats.? For radiation dose reduction, the following was used:? automated exposure control, adjustment of mA and/or kV according to patient size.? ? COMPARISON:? Outside Film, MR, MR BRAIN WITH/WITHOUT CONTRAST, 04/20/2019, 9:02. ? FINDINGS:? Image quality:? Excellent.? ? CSF spaces:? Basal cisterns are patent.? No extra-axial fluid collections.? Ventricles are normal in size and shape.? ? Brain:? No midline shift.? Left frontal lobe hyperdense lesion measuring 0.6 cm, (2).? Right parietal lobe hyperdense lesion measuring 0.8 cm, (2).? These appear unchanged compared to MRI brain 04/20/2019.? These lesions are intrinsically T1 hyperintense on the prior MRI.? No new lesions identified.? No area of hypodensity in a large vascular distribution to suggest acute infarction. Periventricular hypodensity consistent with chronic microvascular ischemic change. Age-related parenchymal loss. ? Skull and face:? Calvarium and visualized facial bones are intact, without suspicious lesions identified.? ? Sinuses:? Visualized sinuses and mastoids are clear.? ? IMPRESSION:? No acute intracranial abnormality demonstrated. ? Left frontal lobe and right parietal lobe hyperdense lesions appear unchanged compared to MRI from 2019. These are most consistent with prior melanoma metastases.? No new lesions identified. ? Consider MRI brain with IV contrast for further evaluation.? ? Dictated by: Amauri Lebron M.D. on 06/27/2021 at 16:34 ? ? Approved by: Amauri Lebron M.D. on 06/27/2021 at 16:40 MRI brain: Radiologist's Impression: [address] [address] Magnetic Resonance Report Signed Patient: Dillon Joaquin MR#: [id number] : 1955 Acct:[id number] Age/Sex: 65 / M Date of Service: 06/27/21 Loc: ED Accession Number: [id number] ?? Procedure: MR head/brain wo/w con Ordering Provider: Robson Betancourt D.O. PROCEDURE:? MR HEAD/BRAIN WO/W CON ? INDICATIONS:? Melanoma with brain Mets and left-sided weakness ? TECHNIQUE:? Noncontrast axial T1 spin echo, axial T2 fast spin echo, sagittal and axial FLAIR, coronal T2 fast spin echo, axial gradient echo, axial diffusion and ADC through the brain.? After the administration of contrast, axial and coronal T1 spin echo with fat saturation through the brain.? ? COMPARISON:? [facility], CT, CT HEAD/BRAIN WO CON, 06/27/2021, 16:30.? Outside Film, MR, MR BRAIN WITH/WITHOUT CONTRAST, 04/20/2019, 9:02. ? FINDINGS:? Image quality:? Excellent.? ? CSF spaces:? Basal cisterns are patent.? No extra-axial fluid collections.? Ventricles are normal in size and shape.? ? Brain:? No midline shift.? No intracranial bleeds or masses.? High T1 intensity focus within the right posteromedial parietal lobe, corresponding to the site of melanoma seen previously which demonstrates postcontrast enhancement on the current examination, which is decreased in prominence.? There is cerebral volume loss for age.? There is periventricular white matter chronic small vessel ischemic change.? The brainstem appears normal.? Diffusion-weighted images demonstrate a moderate size region of elevated signal intensity within the right frontoparietal lobe junction which demonstrates low ADC map, and mild FLAIR signal elevation. No chronic ischemic insults.? Normal intravascular flow voids are present.? ? Skull and face:? Calvarial marrow is normal in signal.? Orbits appear normal.? ? Sinuses:? Sinuses and mastoids appear clear.? ? IMPRESSION:? 1. Early subacute infarct within the right frontoparietal lobe. 2. Decreased right parietal lobe melanoma metastasis.? ? ? Dictated by: Viral Cerna M.D. on 06/27/2021 at 17:05 ? ? Approved by: Viral Cerna M.D. on 06/27/2021 at 17:08? ECG Data Attestation: I personally reviewed and interpreted this ECG as follows: Interpretation: Atrial fibrillation Ventricular rate of 57 Normal axis Normal QRS Normal QTC No ST T wave changes MDM Narrative Medical decision making narrative: Patient is asymptomatic at the time of arrival. He was given the balance of a full-dose aspirin. He did take a baby aspirin prior to arrival. CT scan does show his metastatic lesions. MRI does show the metastatic lesions as well but also a subacute infarct. Given his resolution of symptoms patient would not be a candidate for tPA. Not a code IR candidate. He was found to be in AFib as well. He is rate controlled. I did discuss the findings with the patient and his at bedside. I discussed the case with Dr. Devine who is on-call for the patient's primary provider. We will admit for further evaluation and treatment. Discharge Plan Departure Patient Disposition: Admitted As Inpatient Clinical Impression: Cerebrovascular accident, A-fib Admit Date/Time: 06/27/21 19:16
[2021-06-27 16:59] LABS: Add Manual Diff / Slide Review NO; Basophils Absolute Auto 0 /uL (0-100); Basophils Percent Auto 0.7 % (0-2); Eosinophils Absolute Auto 100 /uL (0-450); Eosinophils Percent Auto 1.5 % (2-4); Hematocrit 43.3 % (41-53); Hemoglobin 15.4 g/dL (13.5-17.5); Lymphocytes Absolute Auto 1200 /uL (1100-4500); Lymphocytes Percent Auto 26.2 % (25-40); Mean Corpuscular HGB Conc 35.5 % (30-36); Mean Corpuscular Hemoglobin 33.2 PG (26-34); Mean Corpuscular Volume 93.5 fL (80-100); Monocytes Absolute Auto 400 /uL (0-900); Monocytes Percent Auto 9.5 % (3-14); Neutrophils Absolute Auto 2700 /uL (1500-7000); Neutrophils Percent Auto 62.1 % (50-75); Platelet Count 182 X10^3/uL (150-400); Red Blood Cell Count 4.63 X10^6/uL (4.5-5.9); Red Cell Distribution Width 12.9 % (11.6-14.8); White Blood Cell Count 4.4 X10^3/uL (4.5-11.0)
[2021-06-27 17:13] LABS: INR 0.9 (0.9-1.3); Prothrombin Time 10.6 SECONDS (10.1-12.7)
[2021-06-27 17:15] LABS: PTT Partial Thromboplastin Tim 30 SECONDS (26.4-36.2)
[2021-06-27 17:38] LABS: Alanine Aminotransferase 22 IU/L (<50); Albumin 4.2 g/dL (3.5-5.0); Albumin Globulin Ratio 1.6 (1.0-2.8); Alkaline Phosphatase 75 U/L (38-126); Aspartate Aminotransferase 29 IU/L (17-59); BUN Creatinine Ratio 13.5 (6-22); Bilirubin Total 0.7 mg/dL (0.2-1.3); Blood Urea Nitrogen 10 mg/dL (9-20); Calcium 9.2 mg/dL (8.4-10.2); Carbon Dioxide 27 mmol/L (22-32); Chloride 106 mmol/L (98-107); Estimated Glomerular Filt Rate > 60.0 mL/min (>60); Globulin 2.6 g/dL (1.7-4.1); Glucose 96 mg/dL (80-110); HEMOLYSIS 18 (0-50); Lipase 79 U/L (23-300); Potassium 3.8 mmol/L (3.4-5.1); Sodium 139 mmol/L (137-145); Total Protein 6.8 g/dL (6.3-8.2)
[2021-06-27 18:14] LABS: COVID19 - ADMIT (NP swab/PCR) Negative (Negative)
[2021-06-27] MEDS: ASPIRIN 81 MG CHEW TAB 243 MG PO (19:00)
[2021-06-27] MEDS: ATORVASTATIN 20 MG TABLET 40 MG PO (20:57)
--- NOTE | 2021-06-27 21:49 | PC.ADMIT ---
Addendum entered by Soniya Guzmán R.N. 06/28/21 07:40: CT report called to Dr Devine who requested tele stroke be involved. Tele stroke center contacted by Christine Romero, MACHINE GUN MECHANIC, and CT image pushed through to them. Dr Smith called back stating patient has a small hemorrhage and advised no anticoagulants and to keep SBP < 160. Dr. Devine here and discussed findings/plan with patient. Last BP was 135/81. Addendum entered by Soniya Guzmán R.N. 06/28/21 05:27: Notified by [facility] C[facility] SPECIALIST that HR has been staying bradycardic in afib with HR as low as 39 and pauses have been increasing in length up to 2 1/2 seconds. BP 135/81. Pupils 3mm equal and reactive. Patient is alert and oriented. Has NIH now of 2 with left leg drift and numbness. He stated SCD was not working on left leg but when checked equipment working. When both legs touched he is stated he could only feel the touch on right side. Dr Devine informed and order received for repeat head CT w/o contrast and if that is normal/unchanged to give morning dose of Lovenox. Taken to CT in wheelchair. Original Note: Patient admitted to room 214 from ER for possible CVA. NIH at time of admit was 0. Is alert and oriented. Breath sounds CTA with RA sat of 98%. HR irregular and has history of afib. Telemetry reading was afib CVR with rate of 60 but noted to drop down into 50's. Denied nausea. BT present and abdomen is soft. Denied dysuria, frequency or urgency with urination. Has scars on left arm, right thigh and face. Denied pain. Bilateral calf SCD's applied. Fall risk score is low. [email or web address] [facility] Admission Note: The patient,Dillon Joaquin,65 y/o, was given written information regarding hospital policies, unit procedures and contact persons. Patient's smoking status: Never smoker. Vital Signs - 8 hr 06/27/21 16:16 06/27/21 18:04 06/27/21 18:30 Temperature 98.2 F Pulse Rate 65 66 57 L Respiratory Rate 20 17 18 Blood Pressure 138/69 121/88 Pulse Oximetry 100 99 95 06/27/21 19:02 06/27/21 19:03 06/27/21 19:30 Temperature Pulse Rate 65 67 61 Respiratory Rate 16 21 18 Blood Pressure 143/83 H Pulse Oximetry 98 98 97 06/27/21 20:00 06/27/21 20:30 06/27/21 20:45 Temperature 98.0 F Pulse Rate 55 L 57 L 51 L Respiratory Rate 17 19 20 Blood Pressure 119/75 126/73 Pulse Oximetry 98 97 98
[2021-06-28 00:18] VITALS: BP 123/81; PULSE 56; RESP 14; TEMP 36.8; O2SAT 98
[2021-06-28 04:32] VITALS: BP 135/81; PULSE 46; RESP 15; TEMP 36.6; O2SAT 96
--- NOTE | 2021-06-28 05:11 | DI.CT.S_ITS ---
PROCEDURE: CT HEAD/BRAIN WO CON INDICATIONS: increased NIH TECHNIQUE: Noncontrast 4.5 mm thick angled axial sections acquired from the foramen magnum to the vertex, with coronal and sagittal reformats. For radiation dose reduction, the following was used: automated exposure control, adjustment of mA and/or kV according to patient size. COMPARISON: [facility], MR, MR HEAD/BRAIN WO/W CON, 06/27/2021, 17:21. [facility], CT, CT HEAD/BRAIN WO CON, 06/27/2021, 16:30. FINDINGS: Image quality: Excellent. CSF spaces: Basal cisterns are patent. No extra-axial fluid collections. The ventricles are symmetric in size and shape. Brain: Unchanged small hyperdense lesions in the left frontal cortex and medial right parietal winchester-white junction region are consistent with known melanoma metastases. There is no significant vasogenic edema noted associated with those lesions. There is a evolving acute infarct involving a small cortical area of the posterior right frontal parietal brain with developing cytotoxic edema. There is no significant mass effect. No evidence of hemorrhagic transformation of the infarct. No additional new infarcts identified. There is cerebral volume loss for age, with resultant ventricular and sulcal prominence. There are periventricular and deep white matter chronic small vessel ischemic changes. There is intracranial internal carotid artery atherosclerosis. Skull and face: Calvarium and visualized facial bones appear intact, without suspicious lesions. Sinuses: Visualized sinuses and mastoids are clear. IMPRESSION: 1. Evolving acute focal right MCA distribution frontal parietal infarct. 2. 2 small melanoma metastatic lesions are again noted. Comment: Final report is concordant with preliminary interpretation provided by [facility]. Dictated by: Josemanuel Mendiola M.D. on 06/28/2021 at 8:11 Approved by: Josemanuel Mendiola M.D. on 06/28/2021 at 8:15
[2021-06-28] MEDS: LEVOTHYROXINE 100 MCG TABLET PO (07:05)
--- NOTE | 2021-06-28 08:51 | PM.HP.1 ---
History of Present Illness History of Present Illness Date Patient Seen: 06/28/21 Time Patient Seen: 08:51 Date of Onset of Symptoms: 06/27/21 Chief complaint: sudden left sided numbness Narrative: Patient is a 65-year-old male with history of malignant melanoma which has been well controlled for several years. Has a history of AFib last event was 3 years ago. Patient apparently felt like he suddenly was an 8 yesterday afternoon and then shortly thereafter around 3:00 p.m. he began having weakness of the left arm. And numbness. 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 By the time he got to the emergency room he was completely resolved. He has had no headaches. No visual symptoms. No nausea no vomiting no other significant change. He has otherwise been feeling quite well. Last episode of AFib was many years ago he has never been on treatment. He takes no other significant medication. In the middle of the night there was a question whether not he was slightly more numb on his left leg and CT was repeated there was a question of some bleeding. But no other changes. He feels as if it was mostly because of the cuffs on his legs and did not feel like he had any change. Otherwise doing well. Feels quite normal this morning. No the still in AFib. Past medical history atrial fibrillation, melanoma, history of sarcoma distant. Past surgical history. Skin cancer resection but no other changes. Habits. Occasional alcohol no cigarettes or tobacco products. No drugs. 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 . Lives here. Multiple family members. Family history no significant stroke history or cardiac disease. Mom with dementia. Dad with dementia. Both in their 90s. Brothers with hypertension, migraines. Patient History Medical History Atrial fibrillation Melanoma Sarcoma Surgical History S/P skin cancer resection Family & Social History Social History: household members spouse Prior Living Arrangements House Safety & Behavioral: Feels Safe in Current Yes Environment Been Physically Hurt or No Threatened By a Person Suicidal Ideation Description None Suicide Plan Description No Plan Tobacco & Substance use: Smoking Status Never smoker alcohol intake frequency a few times a month Substance Use Type marijuana Meds Home Medications and Allergies Home Medications Medication Instructions Recorded Confirmed Type levothyroxine 100 mcg tablet 100 mcg PO DAILY 06/27/21 06/27/21 History Allergies Allergy/AdvReac Type Severity Reaction Status Date / Time No Known Drug Allergies Allergy Verified 04/17/18 20:10 Review of Systems Review of Systems Narrative: Negative full review see above Exam Vital Signs (past 8 hours): - 06/28/21 04:32 Temperature 97.9 F Pulse Rate 46 L Respiratory Rate 15 Blood Pressure 135/81 Pulse Oximetry 96 Oxygen Delivery Method Room Air Oxygen Flow Rate 0 Narrative Exam Narrative: Alert smiling happy male in no acute distress. HEENT exam unremarkable neck supple without adenopathy JVD or bruits. Lungs are clear. Heart is irregular rhythm but controlled rate. Abdomen is soft positive bowel sounds nontender extremities without cyanosis clubbing edema. Pulses are good. Neurologic exam shows cranial nerves 2-12 are intact motor is 5/5 reflexes are 2+ and symmetric. [id number] is normal. Jgwy-be-umie is normal. Did not get patient to walk. Or checked Romberg. Objective ECG Impression: Reported as normal in emergency room with AFib no acute changes. Telemetry shows AFib with 2-/ or slightly greater pauses Labs Result Diagrams: 06/27/21 16:50 06/27/21 16:50 Labs: Laboratory Results - last 24 hr 06/27/21 06/27/21 06/27/21 16:50 16:50 16:50 WBC 4.4 L RBC 4.63 Hgb 15.4 Hct 43.3 MCV 93.5 MCH 33.2 MCHC 35.5 RDW 12.9 Plt Count 182 Neut % (Auto) 62.1 Lymph % (Auto) 26.2 Nance % (Auto) 9.5 Eos % (Auto) 1.5 L Baso % (Auto) 0.7 Neut # (Auto) 2700 Lymph # (Auto) 1200 Nance # (Auto) 400 Eos # (Auto) 100 Baso # (Auto) 0 PT 10.6 INR 0.9 APTT 30 Sodium 139 Potassium 3.8 Chloride 106 Carbon Dioxide 27 BUN 10 Creatinine 0.74 Estimated GFR > 60.0 BUN/Creatinine Ratio 13.5 Glucose 96 Calcium 9.2 Total Bilirubin 0.7 AST 29 ALT 22 Alkaline Phosphatase 75 Total Protein 6.8 Albumin 4.2 Globulin 2.6 Albumin/Globulin Ratio 1.6 Lipase 79 SARS-CoV-2 (PCR) 06/27/21 16:55 WBC RBC Hgb Hct MCV MCH MCHC RDW Plt Count Neut % (Auto) Lymph % (Auto) Nance % (Auto) Eos % (Auto) Baso % (Auto) Neut # (Auto) Lymph # (Auto) Nance # (Auto) Eos # (Auto) Baso # (Auto) PT INR APTT Sodium Potassium Chloride Carbon Dioxide BUN Creatinine Estimated GFR BUN/Creatinine Ratio Glucose Calcium Total Bilirubin AST ALT Alkaline Phosphatase Total Protein Albumin Globulin Albumin/Globulin Ratio Lipase SARS-CoV-2 (PCR) Negative Assessment & Plan Assessment & Plan narrative: Acute right-sided CVA. Probably secondary to atrial fibrillation. I have reviewed CT scan with Radiology they see no evidence of significant bleed. They see no significant change from previous CTs. Discussed with tele stroke. Recommend anticoagulation for atrial fibrillation and to follow. Certainly will continue Q shift stroke checks probable discharge tomorrow. Echo is pending and MRI shows her developing CVA. Otherwise no changes. No evidence of bleeding. Will follow. Will not need inpatient stroke rehab for sure at this point because he is completely resolved new Atrial fibrillation. Patient will be anticoagulated. Does not need rate control. Will discuss with Cardiology about frequent pauses. No other changes. Patient understands. Potentially could need pacer 1 be able to do cardioversion disease been and that longer the than recommended had stroke. But will discuss. Metastatic meningioma. Appears normal. Doing well. No evidence of change in MRI or stroke protocol. We discussed risk of anticoagulation with neurologist he feels it is better to be anticoagulated will continue his usual treatment with Oncology. DVT prophylaxis will be placed on Eliquis. Code status full. GI prophylaxis should be low risk but will follow. Disposition. Will need at least 24 more hours of monitoring for his new onset AFib or recurrent AFib and decision on further treatment and observation to make sure stable. On anticoagulation. He understands questions answered. Time Spent With Patient Critical Care time: I spent a total of [] minutes of critical care time on this patient's care today; this time is exclusive of procedural time.
[2021-06-28 09:00] VITALS: BP 123/77; PULSE 65; RESP 16; TEMP 36.3; O2SAT 96
--- NOTE | 2021-06-28 09:31 | CM.DANOTE ---
Discharge Assessment Note Patient is 65yo Male admitted for r/o stroke and left sided numbness, Dr. Muniz. Patient is fully independent at baseline and typically walks 3 miles daily. Patient currently undergoing cancer treatments per EMR. Patient does not have SNF or HH history. Patient does not have DME at home to assist with ambulation if needed. Patient lives in 2 story home; pending PT/OT/Speech evaluations to determine level of therapeutic treatment required at discharge. Patient resides with his spouse. Patient is hoping for discharge home to attend to needs in outpatient setting. Plan: Case management team will continue to follow patient throughout course of admission to assess for discharge planning needs which are more likely to be known after PT/OT/Speech evaluations are completed. Ins: Medicare w/secondary of [facility] Fabian Steward Discharge Planning/Care Management CM Discharge Assessment Start: 06/28/21 09:28 Freq: Status: Active Protocol: Document 06/28/21 09:28 NILO (Rec: 06/28/21 09:30 FJ [id number]) Discharge Planning Assessment Assigned Stained Glass Glazier Helper Fabian Steward [facility] DPOA/Assigned Designee Name Rony Contact Information [phone] Advance Directives? No History Provided By Patient,Medical Record Has Patient been admitted in last 30 No days? Prior Living Arrangements House Household Members spouse Type of transporation used prior to Drives own vehicle admit Comment fully independent at baseline Independent with ADL's Yes Is patient alert and oriented? Yes Comment fully ind at baseline, typically walks 3 miles daily Caregiver for Another No Patient/Family Preference OP PT Therapy,OP OT Therapy,OP BEHAVIORAL SCIENCES INSTRUCTOR Therapy Comment pending evaluations Barriers to Discharge No Discharge Plan Home Transportation Arrangement Additional Comment pending evaluations Whiteboard Updated in Patient Room with Yes name and ext. # of Stained Glass Glazier Helper Review Status In Process Next Review Type Continued Stay Review
--- NOTE | 2021-06-28 09:44 | PC.NURSE ---
Day shift: Per Dr Muniz ok to d/c duplicate orders.
[2021-06-28] MEDS: SODIUM CHLORIDE 0.9% FLUSH 10 ML IV ×2 (09:53→21:34)
[2021-06-28] MEDS: APIXABAN 5 MG TABLET PO ×2 (09:53→20:38)
--- NOTE | 2021-06-28 10:40 | PT.IIE ---
Current Diagnoses Cerebral infarction, unspecified (06/27/21) Medical History (Last Reviewed 06/28/21 @ 08:59 by Dillon Muniz MD) Atrial fibrillation Melanoma Sarcoma Physical Therapy Inpatient Evaluation/Re-Eval M1 PT/OT-IP Prior Functional Status Start: 06/28/21 12:23 Freq: NEEDED Status: Active Protocol: Document 06/28/21 10:40 AB (Rec: 06/28/21 12:46 AB [id number]) Medical Review Prior Functional Status Medical History Reviewed Yes Communication able to make needs known Mobility and Gait pt stated that he is independent with all mobilities and ambulation without AD Social History Household Members spouse Living Arrangements House Number of Floors (Floors) Two Floors Number of Stairs To Enter/Railing? 2 steps without rails 9 steps +landing + 10 steps L rail descending to get down to basement/office Home Environment Standard Height Toilet,Walk in Shower Additional Social History Comment pt works as a musician M2 PT-IP Current Condition Start: 06/28/21 12:23 Freq: NEEDED Status: Active Protocol: Document 06/28/21 10:40 AB (Rec: 06/28/21 12:46 AB [email or web address]) Physical Therapy Current Condition Current Condition Evaluation Date 06/28/21 Treatment Diagnosis R frontoparietal CVA; difficulty in walking Onset Date 06/27/21 M3 PT-IP Subjective Start: 06/28/21 12:23 Freq: NEEDED Status: Active Protocol: Document 06/28/21 10:40 AB (Rec: 06/28/21 12:46 AB [email or web address]) Subjective Physical Therapy Visit Type Type Initial Evaluation Visit Start Time 10:40 Visit Stop Time 11:20 Total Visit Minutes 40 Number of DIRECTOR OF SLEEP Visits 0 Physical Therapy Visit Comments Patient Comments agreeable to do PT M4 PT-IP Mobility and Gait Start: 06/28/21 12:23 Freq: NEEDED Status: Active Protocol: Document 06/28/21 10:40 AB (Rec: 06/28/21 12:46 AB [email or web address]) PT-Transfer Assessment Sit to and From Stand Sit to and from Stand Standby Assistance Equipment Transfer Assistive Device Gait Belt Orthotic/Prosthetic Devices or Brace: No Comments Mobility Comments pt sitting on chair. agreeable to do PT. pt can be impulsive. completed sit to stand SBA and ambulated in room without AD requiring CGA ~ 30 ft. presents with unsteady antalgic, ataxic gait with increase side trunk lean to the R with LOB with recovery. pt educated regarding COG, steadiness, posture and safety. pt ambulated again in room SBA 20 ft. pt agreed to walk in the hallway and completed ~ 250 ft SBA with cues. (+) LOB but with recovery. pt completed up/down stairs using R rail ascending x 2 sets. completed up/down platform step without AD CGA with unsteady descent. educated regarding stair climbing balance, LE steadiness, weight shifting. pt completed up/down platform step x 5 reps and completed SBA to CGA with more controlled pattern. pt ambulated back to his room SBA. balance assessment conducted: 5x sit<>stand: completed in 19 sec; static standing: with narrow TY: steady with eyes open; unsteady with eyes closed, steady with perturbations, steady with 360 turns clockwise/counter; Single leg stance: R: able to hold for 10 sec but with LE shakiness; LLE: held for only 5 sec and is unsteady. pt sat back on chair. call light and table within reach. informed pt regarding mobility safety, standing balance and outpt PT recommendation. Pt understood. Gait Assessment Gait Gait Assistance Required: Standby Assistance,Contact Guard Assist,1 Person Assist Distance (Feet) 250 Able to Maintain Weight Bearing Status Yes During Gait Assistive Devices Assistive Device None,Gait Belt Orthotic/Prosthetic Devices or Brace: No Gait Deviations General Gait Pattern Antalgic,Ataxic,Decreased Stride Length,Decreased Feet Clearance,Lateral Trunk Lean Factors Limiting Gait Function Factors Limiting Gait Function Decreased Activity Tolerance, Decreased Strength,Poor Balance,Poor Safety Awareness Stair Climbing Assessment Evaluation Level of Assist On Stairs Standby Assistance,Contact Guard Assistance Devices Stair Climbing Assistive Devices None,Right Railing Technique/Endurance Stair Climbing Direction Ascend and Descend Stair Climbing Technique Step to Step Number of Steps Climbed 3 Query Text: Stair Climbing Set # Repetitions (reps) 2 PT-Balance Assessment Sitting Balance and Reactions Static Sitting Balance Ability Normal Dynamic Sitting Balance Ability Normal Standing Balance and Reactions Static Standing Balance Ability Good Dynamic Standing Balance Ability Fair Device Used without AD Functional Assessments Functional Tests 5 Times Sit to Stand 19 sec Other Functional Tests Performed pls refer to mobility section for details M5 PT-IP Objective Assessments Start: 06/28/21 12:23 Freq: NEEDED Status: Active Protocol: Document 06/28/21 10:40 AB (Rec: 06/28/21 12:46 AB [email or web address]) Orientation Orientation/Cognition Level of Alertness Alert Orientation Name,Place,Situation Safety Awareness Decreased Safety Awareness Comments pt can be impulsive Gross Range of Motion Lower Extremity ROM Assessment Within Functional Limits Strength Lower Extremity Strength Assessment Left Impaired Hip 4-/5 Knee 4-/5 Comments Strength Comments RLE 4+/5 Sensation Assessment Sensation Gross Sensation Left UE Impaired Sensation Description Numbness Comments Sensation Comments stated L biceps area numbness and can only feel ~ 15% Muscle Tone Muscle Tone WNL Yes M6 PT-IP Treatment Start: 06/28/21 12:23 Freq: NEEDED Status: Active Protocol: Document 06/28/21 10:40 AB (Rec: 06/28/21 12:46 AB [email or web address]) Physical Therapy Treatment Education Education Provided Safety M7 PT-IP Assessment and Plan Start: 06/28/21 12:23 Freq: NEEDED Status: Active Protocol: Document 06/28/21 10:40 AB (Rec: 06/28/21 12:46 AB [email or web address]) PT Summary Assessment and Plan Potential Rehabilitation Potential Good Status of Condition at Evaluation Stable Summary Impairments Pain,ROM,Strength,Balance, Coordination,Sensation,Tone, Cognition,Bed Mobility, Transfers,Gait,Activity Tolerance Assessment Summary pt requiring SBA to CGA with mobility without AD. educated regarding standing balance due to unsteadiness. gait training and stair climbing training conducted and pt improved but will continue to benefit from outpt PT. Pt plans to go home with spouse to assist him. Pt may go home when medically stable. Goals Bed Mobility Goal Independent Transfer Goal Independent Gait Goal Independent Gait Distance 300 Other Goals improve standing balance: static to N and dynamic to G up/down steps without rails mod I Days to Meet Goals 5 Frequency of Treatment Frequency Of Treatment Once a Day Treatment Plan Physical Therapy Treatment Plan Bed Mobility Training,Transfer Training,Gait Training, Therapeutic Exercise,Balance Retraining,Discharge Planning, Hot or Cold Pack,Neuromuscular Re-ed,Coordination Retraining Recommendations To Nursing Amount of Assist Needed 1 Person Assist Discharge Recommendations PT Discharge Recommendations Home with Assistance, Outpatient PT Transportation Needs at Discharge Private Vehicle
--- NOTE | 2021-06-28 12:10 | ST.IPSCREEN ---
Completed oral mechanism exam with Dillon. He exhibited mild deviation of tongue to left when protruding tongue and mild deviation of uvula to the right at rest and in motion. Otherwise, all structures were symmetrical at rest and in motion. Tongue, lip, and jaw ROM and strength were WNL. Hyolaryngeal elevation and excursion were WNL on dry swallow and with thin liquids through straw cup. Structure and function of oral mechanism is WNL for the purposes of speech and swallowing. Dillon exhibited speech sound production WNL and answered questions appropriately. OT completed SLUMS with Dillon and he scored a 26/30, placing him WNL for cognitive skills. Completed swallow screen with water through straw cup. No overt signs or symptoms of aspiration observed and Dillon reported no coughing or choking when eating, no difficulty chewing, and no difficulty swallowing. Discussed results of screen and Dillon expressed understanding and agreement with discharge from speech therapy at this time.
[2021-06-28 12:23] LABS: BUN Creatinine Ratio 12.7 (6-22); Blood Urea Nitrogen 10 mg/dL (9-20); Calcium 9.4 mg/dL (8.4-10.2); Carbon Dioxide 28 mmol/L (22-32); Chloride 105 mmol/L (98-107); Estimated Glomerular Filt Rate > 60.0 mL/min (>60); Glucose 104 mg/dL (80-110); HEMOLYSIS 19 (0-50); Potassium 4.6 mmol/L (3.4-5.1); Sodium 137 mmol/L (137-145)
[2021-06-28 12:53] LABS: Thyroid Stimulating Hormone 1.04 uIU/mL (0.47-4.68)
--- NOTE | 2021-06-28 13:08 | PC.NURSE ---
Day shift: Pt continues with no s/s of stroke at this time. Remains Afib per tele. Pt has been ambulating in room w/o issue. Denies any pain, chest pain or nausea. Encouraged to drink water. Uses call light proper. Urine output WNL. Calm and cooperative with care. Call light in reach.
--- NOTE | 2021-06-28 13:20 | PC.NURSE ---
Day shift: Per OT Pt has no sensation in left arm or left leg at this time.
--- NOTE | 2021-06-28 13:27 | OT.IP.EVAL ---
Current Diagnoses Cerebral infarction, unspecified (06/27/21) Past Medical History (Last Reviewed 06/28/21 @ 08:59 by Dillon Muniz MD) Atrial fibrillation Melanoma S/P skin cancer resection Sarcoma Surgical History (Last Reviewed 06/28/21 @ 08:59 by Dillon Muniz MD) S/P skin cancer resection Occupational Therapy Inpatient Evaluation/Re-Eval M1 PT/OT-IP Prior Functional Status Start: 06/28/21 12:23 Freq: NEEDED Status: Active Protocol: Document 06/28/21 10:40 AB (Rec: 06/28/21 12:46 AB [id number]) Medical Review Prior Functional Status Medical History Reviewed Yes Communication able to make needs known Mobility and Gait pt stated that he is independent with all mobilities and ambulation without AD Social History Household Members spouse Living Arrangements House Number of Floors (Floors) Two Floors Number of Stairs To Enter/Railing? 2 steps without rails 9 steps +landing + 10 steps L rail descending to get down to basement/office Home Environment Standard Height Toilet,Walk in Shower Additional Social History Comment pt works as a musician M2 OT-IP Current Condition Start: 06/28/21 12:53 Freq: Status: Active Protocol: Document 06/28/21 09:25 [facility] (Rec: 06/28/21 14:08 [facility] [id number]) Occupational Therapy Current Condition Current Condition Evaluation Date 06/28/21 Treatment Diagnosis Acute focal right MCA distribution frontal/parietal infract Diagnosis Onset Date 06/27/21 Post Operative Precautions Other Precautions Lack of sensation throughout LUE, LLE decreased as well but did not assess the whoe leg. M3 OT- IP Subjective and Pain Start: 06/28/21 12:53 Freq: Status: Active Protocol: Document 06/28/21 09:25 [facility] (Rec: 06/28/21 14:08 [facility] [id number]) OT- Subjective Occupational Therapy Visit Type Type Initial Evaluation Visit Start Time 09:25 Visit Stop Time 13:27 Total Visit Minutes 86 Occupational Therapy Visit Comments Patient Comments Pt seen for split treatment. [phone] and [phone]. Patient/Caregiver Goals To go home OT Pain Assessment Pain When Pain Assessed At Rest Pain Present Pain Present Denied Pain M4 OT- IP ADL's Start: 06/28/21 12:53 Freq: Status: Active Protocol: Document 06/28/21 09:25 [facility] (Rec: 06/28/21 14:08 [facility] [id number]) OT ADL-Dressing General Eval Lower Body Dressing Ability Standby Assistance Comments OT Dressing Comments Pt able to april/doff socks while seated. Pt unable to stand to april/doff his socks and having loss of balance. However pt states prior sits for LB dressing needs. OT ADL-Toileting Comments OT Toileting Comments Pt states has been using the toilet on her own. OT ADL-Bathing Comments OT Bathing Comments Pt states not wanting to showeer at this time. M5 OT- IP IADL's Start: 06/28/21 12:53 Freq: Status: Active Protocol: Document 06/28/21:25 [facility] (Rec: 06/28/21 14:08 [facility] [id number]) OT-Instrumental Activities of Daily Living Deficits IADL Deficits Identified Deficits Home Safety Awareness Awareness of Need for Assistance at Home Good Awareness Ability to Problem Solve Emergency Able to Problem Solve Situations Home Safety Comments Due to pt's lack of sensation of left side, pt will benefit from supervision. Suggested at this time to no use power tools or sharp objects at this time. Medication Management Medication Management Comments Pt has a supportive to assist him for all his needs. Driving Driving Concerns Identified Regarding Safety Driving Comments Due to lack of sensation, suggested pt may want to hold for driving at this time. M6 OT- IP Functional Cognition Start: 06/28/21 12:53 Freq: Status: Active Protocol: Document 06/28/21 09:25 [facility] (Rec: 06/28/21 14:08 [facility] [id number]) Cognitive Factors Limiting Selfcare Function Cognitive Ability Level of Alertness Alert Patient Orientation Name,Age,Birthday,Month,Date, Year,Day of Week,Place, Situation Attention Span Ability Capable of Focused Attention, Capable of Sustained Attention Ability to Follow Commands Able to Follow One Step Commands Memory Description Short Term Impaired Cognitive Tests SLUMS Pt scored 26/30 which implies mild cognitive deficits. Pt able to recall 3/5 objects after time passed, and able to answer 3/4 questions after paragraph read. Cognitive Comments Cognitive Assessment Comments Pt scored 90 seconds on Shirley Making Part B which implies mild impairments with visual attention, speed of processing , mental flexibility, executive functioning, and task switching. Pt at times needing increased time to follow commands. OT- Vision and Hearing OT- Hearing Assessment OT- Hearing Assessment WFL OT- Vision Assessment Visual Acuity Glasses For Reading M7 OT- IP Mobility and Balance Start: 06/28/21 12:53 Freq: Status: Active Protocol: Document 06/28/21 09:25 [facility] (Rec: 06/28/21 14:08 [facility] [id number]) OT- Bed Mobility Assessment Rolling Type of Rolling Roll to Right Level of Assistance Independent Supine to Sit Supine to Sit Assist Independent Sit to Supine Sit to Supine Assist Independent Scooting Scooting to Edge of Bed Independent OT-Transfer Assessment Sit to and From Stand Sit to and from Stand Standby Assistance Transfers Transfer Ability Standby Assistance Technique Transfer Destination Bed,Chair Transfer Technique Stand Step Pivot Devices Transfer Assistive Devices None,Gait Belt Comments Mobility Comments Pt able to transfer to the recliner and bench in front of the window with distant SBA. Pt needing close SBA when able to get down to the floor, however heavy use of his arms to help get up. OT- Balance Assessment Sitting Balance and Reactions Static Sitting Balance Ability Normal Dynamic Sitting Balance Ability Good Standing Balance and Reactions Static Standing Balance Ability Good Dynamic Standing Balance Ability Fair M8 OT- IP Objective Assessments Start: 06/28/21 12:53 Freq: Status: Active Protocol: Document 06/28/21 09:25 [facility] (Rec: 06/28/21 14:08 [facility] [id number]) OT Gross Range of Motion Upper Extremity Range of Motion Assessment Within Functional Limits OT Strength Upper Extremity Strength Assessment Left Impaired Comments Strength Comments RUE 5/5, LUE 4/4+/5 OT- Coordination Assessment Upper Extremity Finger to Nose Test Left UE Impaired Comments Coordination Comments Do to pt's decreased sensation has difficulty with FMS, however when able to actively use his eyes more and slow down able to complete left FMS better. Initially left hand 9 Hole Peg 33 seconds and then when asked to slow down and use his eyes to be sure the pegs when in place , pt score improved to 27 seconds. Right hand was 32 seconds. Pt increased time for diadochokinesis and having trouble coordination his left hand to rigth hand movements. Have pt try to tap drum rythms on the table and pt's left hand having trouble to keep up. OT-Muscle Tone Assessment Muscle Tone WNL Yes M9 OT- IP Assessment and Plan Start: 06/28/21 12:53 Freq: Status: Active Protocol: Document 06/28/21 09:25 [facility] (Rec: 06/28/21 14:08 [facility] [id number]) OT Summary Assessment and Plan Potential Rehabilitation Potential Good Analytic Complexity at Evaluation High Summary OT Impairments Balance,Sensation,Functional Cognition,Functional Mobility, Grooming,Dressing,Toileting, Bathing,Toilet Transfers, Shower Transfers Progress Towards Goals Slow Progress due to Medical Issues Assessment Summary Pt with CVA and with melanoma metastasis. Pt's main barrier are lack of sensation for LUE and LLE which affect his coordination and movements. LUE unable to feel light touch, deep pressure, and pin prick at this time. Able to give pt activities for sensory retraining information after CVA. Pt has supportive and pt plan on going home. Pt give lots of OT activities to work on at home and pt feels at this time does not want to have outpt OT and work on it on his own at this time. Goals Self-Feeding Goal Independent Grooming Goal Independent Dressing Goal Independent Toileting Goal Independent Bathing Goal Independent Toilet Transfer Goal Independent Shower Transfer Goal Independent Days to Meet Goals 10 Frequency of Treatment Frequency Of Treatment Once a Day Treatment Plan OT Treatment Plan ADL Training,Functional Cognition Training,Functional Mobility,Neuromuscular Re- education,Patient/Family Education,Discharge Planning Discharge Recommendations OT Discharge Recommendations Home with 03/02 Assist Available Transportation Needs at Discharge Private Vehicle
[2021-06-28 13:35] VITALS: BP 118/86; PULSE 57; RESP 16; TEMP 36.9; O2SAT 98
[2021-06-28] MEDS: ACETAMINOPHEN 325 MG TABLET 650 MG PO ×2 (13:50→20:49)
--- NOTE | 2021-06-28 16:00 | DIET.OUTPTC ---
Dietary Outpatient Consultation Note Consultation Date: 06/28/2021 RD notified by Room Service that pt follows VEGAN diet, adjusted diet order accordingly. Electronically Signed by: Yin Stringer 06/28/21 16:00 Clinical Dietitian [address] [address]
[2021-06-28 17:00] VITALS: BP 130/69; PULSE 71; RESP 16; TEMP 36.2; O2SAT 98
[2021-06-29 00:47] VITALS: BP 133/82; PULSE 55; RESP 16; TEMP 36.6; O2SAT 95
[2021-06-29 05:00] VITALS: BP 128/79; PULSE 51; RESP 15; TEMP 36.4; O2SAT 98
[2021-06-29] MEDS: LEVOTHYROXINE 100 MCG TABLET PO (06:15)
[2021-06-29 08:02] LABS: Add Manual Diff / Slide Review NO; Basophils Absolute Auto 0 /uL (0-100); Basophils Percent Auto 0.8 % (0-2); Eosinophils Absolute Auto 100 /uL (0-450); Eosinophils Percent Auto 1.7 % (2-4); Hematocrit 45.6 % (41-53); Hemoglobin 16.1 g/dL (13.5-17.5); Lymphocytes Absolute Auto 1300 /uL (1100-4500); Lymphocytes Percent Auto 26.1 % (25-40); Mean Corpuscular HGB Conc 35.4 % (30-36); Mean Corpuscular Volume 93.2 fL (80-100); Monocytes Absolute Auto 500 /uL (0-900); Monocytes Percent Auto 10.3 % (3-14); Neutrophils Absolute Auto 3000 /uL (1500-7000); Neutrophils Percent Auto 61.1 % (50-75); Platelet Count 179 X10^3/uL (150-400); Red Blood Cell Count 4.89 X10^6/uL (4.5-5.9); Red Cell Distribution Width 12.8 % (11.6-14.8); White Blood Cell Count 4.9 X10^3/uL (4.5-11.0)
--- NOTE | 2021-06-29 09:27 | PM.DS.1 ---
History of Present Illness History of Present Illness Date Patient Seen: 06/29/21 Time Patient Seen: 08:45 Date of Onset of Symptoms: 06/27/21 Chief complaint: sudden left sided numbness Narrative: Pt feeling fine this morning sensory decrease in L limbs is improved today no tingling just increased sensation motor function good eating breakfast up walking no trouble started eliquis yesterday no difficulty Discharge Providers Provider Date of admission: 06/27/21 19:16 Discharge Date: 06/29/21 Primary care physician: Dillon Muniz MD Consults: 06/28/21 07:05 Consult to Physical Therapy Evaluate & Treat Comment: Physician Instructions: Evaluate and Treat 06/28/21 08:41 Consult to Discharge Planning Routine Comment: Consult to Occupational Therapy Evaluate & Treat Comment: Physician Instructions: Evaluate and treat Consult to Physical Therapy Evaluate & Treat Comment: Physician Instructions: Evaluate and Treat Consult to Speech Therapy Evaluate & Treat Comment: Physician Instructions: Evaluate and treat Discharge provider: Nate Devine MD Summary Hospital Course Discharge Diagnosis: R parietal infarct - CVA Atrial fibrillation Hospital Course: This pleasant gentleman with history of melanoma with stable metastases to brain under good control with immunotherapy infusions without neurological impairment at baseline presented to ED with complaint of sudden L sided numbness. He was found on MRI to have an evolving R parietal infarct and admitted to the floor for observation with resolution of symptoms and NIHSS zero, receiving ASA full dose but no other anticoagulation. He complained of recurrent L sided numbness the next morning around 5 am and had drift in his leg. Repeat CT showed no new infarct and his symptoms again disappeared on evaluation by me at 6 am. He was started on eliquis for ongoing anticoagulation for his bradycardic atrial fivrillation, he was noted to hae some significant pauses on cardiac sonographer as well however his blood pressure remained good with systolic above 110. By day of discharge he remained asymptomatic was up ambulating started eliquis no problem. felt back to normal iwth just a bit of 'cotton wool' feeling in L limbs. MRI does confirm R parietal infarct. Exam Vital Signs (past 8 hours): - 06/29/21 05:00 Temperature 97.5 F L Pulse Rate 51 L Respiratory Rate 15 Blood Pressure 128/79 Pulse Oximetry 98 Oxygen Delivery Method Room Air Oxygen Flow Rate 0 Narrative Exam Narrative: cheerful raymond sitting up demolishing breakfast Const General: cooperative, healthy appearing, comfortable and well groomed [facility] Head: normal to inspection Eyes General: appearance normal, both eyes and all related structures Resp Auscultation: clear to auscultation bilaterally Cardio Other: decreased rate, irregularly irregular rhythm GI Other: normal bowel sounds soft to palpation Extrem General: normal to inspection and full ROM Other: sensation reported as very mildly decreased in L limbs relative to R but strength 5/5 in all, no drift evident Psych Mental Status: mental status grossly normal Speech and Movement: speech and movement normal Objective Labs Result Diagrams: 06/29/21 07:23 06/28/21 11:45 Labs: Laboratory Results - last 24 hr 06/28/21 06/28/21 06/29/21 11:45 11:45 07:23 WBC 4.9 RBC 4.89 Hgb 16.1 Hct 45.6 MCV 93.2 MCH 33.0 MCHC 35.4 RDW 12.8 Plt Count 179 Neut % (Auto) 61.1 Lymph % (Auto) 26.1 Graves % (Auto) 10.3 Eos % (Auto) 1.7 L Baso % (Auto) 0.8 Neut # (Auto) 3000 Lymph # (Auto) 1300 Graves # (Auto) 500 Eos # (Auto) 100 Baso # (Auto) 0 Sodium 137 Potassium 4.6 Chloride 105 Carbon Dioxide 28 BUN 10 Creatinine 0.79 Estimated GFR > 60.0 BUN/Creatinine Ratio 12.7 Glucose 104 Calcium 9.4 TSH 1.04 [facility] Medical History Atrial fibrillation Melanoma Sarcoma Surgical History S/P skin cancer resection Social History household members: spouse Smoking Status: Never smoker Discharge Assessment & Plan Assessment and Plan Assessment: # Acute R parietal CVA, afib in setting of melanoma. No significant bleed noted on imaging. Telestroke recommends initiation of anticoagulation for afib. Stable this morning and discussed need for rigorous compliance with eliquis he verbalized agreement. Echo confirms afib with good EF. # Atrial fibrillation.? initiating eliquis will continue outpatient # Bradycardia: per patient this runs in his family constant issue for his brother who is a airline pilot flight instructor. However blood pressure remains good does not seem to require immediate intervention may f/u with cardiology # Metastatic meningioma:?Doing well on infusions will look to resume those outpatient on discharge.? We discussed risk of anticoagulation with neurologist he feels it is better to be anticoagulated will continue his usual treatment with Oncology.? Disposition: wll discharge home on eliquis to f/u with our office next week. Discharge Plan Discharge Plan Patient Disposition: Home Provider Discharge Comment: f/u with our office within the week Discharge orders & Medications Prescriptions: New Eliquis 5 mg Tablet 5 mg PO BID Qty: 60 0RF Continued levothyroxine 100 mcg tablet 100 mcg PO DAILY 0RF Follow up/Referrals: Dillon Muniz MD [Primary Care Provider] - Diet/Activity/Treatments Diet: Diet as Tolerated Visit Report/Discharge Packet Instructions: Ischemic Stroke, Atrial Fibrillation, Echocardiogram, DI for Atrial Fibrillation, How to Prevent Falls, Right Brain Stroke Discharge Data Primary Care Provider: Dillon Muniz Attending Provider: Dillon Muniz
[2021-06-29] MEDS: APIXABAN 5 MG TABLET PO (09:48)
--- NOTE | 2021-06-29 10:29 | OT.IP.TRT ---
Current Diagnoses Cerebral infarction, unspecified (06/27/21) Occupational Therapy Treatment Note M2 OT-IP Current Condition Start: 06/28/21 12:53 Freq: Status: Discharge Protocol: Document 06/28/21 09:25 [facility] (Rec: 06/28/21 14:08 [facility] [id number]) Occupational Therapy Current Condition Current Condition Evaluation Date 06/28/21 Treatment Diagnosis Acute focal right MCA distribution frontal/parietal infract Diagnosis Onset Date 06/27/21 Post Operative Precautions Other Precautions no sensation in left UE M3 OT- IP Subjective and Pain Start: 06/28/21 12:53 Freq: Status: Discharge Protocol: Document 06/29/21 10:05 [facility] (Rec: 06/29/21 11:14 [facility] [id number]) OT- Subjective Occupational Therapy Visit Type Type Treatment Note Visit Start Time 10:05 Visit Stop Time 10:29 Total Visit Minutes 24 Occupational Therapy Visit Comments Patient Comments Pt agreed to work with OT. Pt states able to feel in his left arm and leg again however still more numbness from proximal to distal for hi left arm. Patient/Caregiver Goals TO go home. OT Pain Assessment Pain When Pain Assessed At Rest Pain Present Pain Present Denied Pain M7 OT- IP Mobility and Balance Start: 06/28/21 12:53 Freq: Status: Discharge Protocol: Document 06/29/21 10:05 [facility] (Rec: 06/29/21 11:14 [facility] [id number]) OT-Transfer Assessment Sit to and From Stand Sit to and from Stand Independent Transfers Transfer Ability Independent Devices Transfer Assistive Devices None,Gait Belt Comments Mobility Comments Independent with no balance issues noted as sensation in his left leg has returned. OT- Balance Assessment Sitting Balance and Reactions Static Sitting Balance Ability Normal Dynamic Sitting Balance Ability Normal Standing Balance and Reactions Static Standing Balance Ability Normal Dynamic Standing Balance Ability Good Muscle Tone WNL Yes M9 OT- IP Assessment and Plan Start: 06/28/21 12:53 Freq: Status: Discharge Protocol: Document 06/29/21 10:05 [facility] (Rec: 06/29/21 11:14 [facility] [id number]) OT Summary Assessment and Plan Potential Rehabilitation Potential Excellent Analytic Complexity at Evaluation High Summary OT Impairments Sensation Progress Towards Goals Progressing Toward Goals Assessment Summary Pt's left sensation has returned however still having mild decrease for sterognosis, yesterday unable to feel a ball, paper clip, or coin in his left hand- today pt able to tell that he had a golf ball, paper clip, and clothes pin in his left hand. Pt not able to tell that he has a dry wall screw in his left hand but when able to use his right hand to assist able to identify the object correctly. Pt able to feel the lotion on his left arm however not as sensitive on his upper left arm. Able to give pt various fabrics and tactile inputs for pt to use at home to help work on increasing his sensation at home. Pt more improved for diadochokinesis today however left hand still noted slight lag. Suggested pt work on playing piano and doing drum exercises at home to be able to help improve the fluidity and smoothness of movements for his left hand on his own. Pt has a very supportive to assist. Goals OT-Other Goals Pt to be independent to work on sensory and coordination activites on his own at home. Days to Meet Goals 1 Frequency of Treatment Frequency Of Treatment Once a Day Treatment Plan OT Treatment Plan Neuromuscular Re-education, Patient/Family Education, Discharge Planning Discharge Recommendations OT Discharge Recommendations Home with Assistance Transportation Needs at Discharge Private Vehicle
--- NOTE | 2021-06-29 10:56 | PC.NURSE ---
Day shift: Paperwork signed and all questions answered. He has all personal belongings. script picked up by his spouse prior to d/c. Taken to car in . Last tele said Afib HR<69. Pt has no chest pain and his NIH was 2. Left unit at approx 1045.
== END 2021-06-29 10:58 | disposition home or self-care (01) ==
LOC: ED 18:55 → AC 19:36
PROVIDERS: Admitting Provider Family Medicine; Emergency Provider Emergency Medicine; PCP Family Medicine; Referring Provider Emergency Medicine; Visit Provider Family Medicine
DX: I63.89 Other cerebral infarction (principal); R29.700 NIHSS score 0; I48.91 Unspecified atrial fibrillation; C79.31 Secondary malignant neoplasm of brain; C43.9 Malignant melanoma of skin, unspecified; Z20.822 Contact with and (suspected) exposure to COVID-19
CPT/HCPCS: 36415; 70450; 70553; 80048; 80053; 81003; 83690; 84443; 85025; 85610; 85730; 87635; 93005; 93010; 93306; 93880; 97116; 97161; 97167; 97530; 99285; C9803; G0378

== ENCOUNTER 2021-07-24 13:17 | Outpatient (RCR) | payer MEDICARE, OTHER, SELFPAY ==
[2021-06-27 21:03] VITALS: BMI 24.8
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
--- NOTE | 2021-07-24 15:13 | PT.OPPOC ---
Physical, Occupational & Speech Therapy At [facility] Current Diagnoses Cerebral infarction due to embolism of right middle cerebral artery (07/24/21) Visit Care Team Role Provider Type Dillon Muniz MD Family Provider Physician Primary Care Provider Specialty: Family Practice Address: [address] [place] [address], [facility] [place], [address] Email: [email or web address] Irene Greenfield MD Attending Provider Physician Referring Provider Specialty: Oncology Address: [address] [place] [address], [address] Email: [email or web address] Plan Of Care PT-OP-T Assessment and Plan Start: 07/24/21 14:20 Freq: Status: Active Protocol: Document 07/24/21 13:45 DCW (Rec: 07/24/21 14:27 DCW [id number]) Physical Therapy Assessment Rehab Potential Rehabilitation Potential Excellent Evaluation Complexity Number of Personal Factors/Comorbidities 0 Number of Body Systems Impaired 1-2 Clinical Presentation at Evaluation Stable Assessment Summary Assessment Pt presenting with almost no deficits four weeks s/p CVA. Pt's only complaints are some unusual sensory input in his left hand when holding hot or cold items, and a mild delay in his left fingers when playing a piano. All testing WNL, good strength, no incoordination noted in hands, ROM WNL, sensory differentiation WNL. Pt will likely simply need time for neuro recovery to occur to improve sensory complaints. Pt unlikely to benefit from further skilled therapy, as was instructed to continue with his piano playing and hand exercises. Pt very thankful that he was not more affected by the CVA, and noted multiple times how ignacio he feels. Physical Therapy Plan Frequency and Duration Frequency of Treatment 1x/Week Duration of Treatment One day Plan of Care Start Date 07/24/21 Plan of Care End Date 07/25/21 Next Visit Focus/Plan Next Note Type Discharge Summary Next Visit Plan Pt unlikely to benefit from further skilled physical therapy Plan of Care Dates Plan of Care Start Date 07/24/21 Plan of Care End Date 07/25/21 Electronically Signed by: North Castillo, PT 07/24/21 1513 Please Sign and Return: I have reviewed this Plan of Care and certify that the skilled therapy services above are required to meet the patient?s needs. Physician Signature Date Printed Name and Credentials Clinical Instructor Signature Printed Name and Credentials
== END 2021-08-14 08:33 ==
LOC: PHYS 13:17
PROVIDERS: Family Provider Family Medicine; PCP Family Medicine; Referring Provider Internal Medicine Hematology & Oncology; Visit Provider Internal Medicine Hematology & Oncology
DX: I63.411 Cerebral infarction due to embolism of right middle cerebral artery (principal)
CPT/HCPCS: 97161

== ENCOUNTER → 2022-03-01 10:42 | Outpatient (CLI) | payer MEDICARE, OTHER, SELFPAY ==
[2021-06-27 21:03] VITALS: BMI 24.8
--- NOTE | 2022-03-01 | DI.US.S_ITS ---
PROCEDURE: US PERIPH VENOUS LOW EXTREM RT INDICATIONS: ?DEEP VEIN THROMBOSIS TECHNIQUE: Real-time imaging, as well as color and pulse Doppler interrogation, were performed of the lower extremity deep veins from the inguinal ligament to the popliteal fossa. COMPARISON: None. FINDINGS: The common femoral, femoral and popliteal veins are normally compressible, and free of intraluminal thrombus. Color and pulse Doppler demonstrate normal phasic intraluminal flow. There is normal augmentation response to distal compression maneuver. A well-defined hypoechoic heterogeneous mass can be seen along the inferior medial thigh. This demonstrates both internal vascularity and surrounding increased vascularity. This measures 7.4 x 5.4 x 4.8 cm. IMPRESSION: Negative for deep venous thrombosis. Along the medial aspect of the thigh, there is a suspicious 7.4 cm soft tissue mass with both surrounding vascularity and internal vascularity. A history is given a prior right thigh liposarcoma, and this may represent a recurrence. If clinically appropriate, please consider a dedicated, scheduled MRI (without and with contrast) for further evaluation (assuming that there is no contraindication). Dictated by: Douglas Farrell M.D. on 03/01/2022 at 10:25 Approved by: Douglas Farrell M.D. on 03/01/2022 at 10:27
== END ==
PROVIDERS: Family Provider Family Medicine; PCP Family Medicine; Referring Provider Family Medicine; Visit Provider Family Medicine
DX: R22.41 Localized swelling, mass and lump, right lower limb (principal); M79.604 Pain in right leg
CPT/HCPCS: 93971

== ENCOUNTER → 2022-03-06 11:40 | Outpatient (CLI) | payer MEDICARE, OTHER, SELFPAY ==
[2021-06-27 21:03] VITALS: BMI 24.8
--- NOTE | 2022-03-06 11:42 | DI.MRI.S_ITS ---
PROCEDURE: MR FEMUR RT WO/W CON INDICATIONS: PAIN AND SWELLING IN RIGHT LEG TECHNIQUE: Noncontrast coronal T1 spin echo and STIR, sagittal T1 spin echo with fat saturation and STIR, axial T1 spin echo and T2 fast spin echo with fat saturation. After the administration of contrast, axial/sagittal/coronal T1 spin echo with fat saturation through the right thigh . COMPARISON: None. FINDINGS: Image quality: Excellent. Bones: No invasion of the distal femoral metaphysis is seen. No significant osseous edema or enhancement. Soft tissues: A heterogeneously enhancing solid mass is seen in the soft tissues medial to the distal femur located along the deep margin of the vastus medialis muscle. The mass measures up to 14.5 cm craniocaudal (18/3) by 5.3 x 4.3 cm in axial dimensions (29/12). A fat containing component is seen along the proximal aspect of the mass measuring approximately 3.1 x 2.3 x 6.1 cm. Lesion demonstrates hyperintense T2-weighted signal. There is surrounding intramuscular edema within the adjacent portions of the vastus medialis and vastus intermedius muscles as well as a portion of the biceps femoris muscle. Muscular invasion is not excluded. The lesion is located anterior to the superficial neurovascular bundle. The lesion abuts the adjacent femoral cortex without definite osseous invasion. Lesion approaches the pre femoral fat pad without definite invasion of the knee joint. IMPRESSION: Large heterogeneous soft tissue mass at the distal medial thigh deep to the vastus medialis muscle and anterior to the superficial femoral neurovascular bundle. The superior portion of the mass contains macroscopic fat. Findings are suspicious for a soft tissue sarcoma such as liposarcoma, although other soft tissue masses are not excluded. No osseous invasion is seen. Recommend orthopedic oncology consultation. Dictated by: Rc Lyman M.D. on 03/06/2022 at 14:35 Approved by: Rc Lyman M.D. on 03/06/2022 at 14:54
== END ==
PROVIDERS: Family Provider Family Medicine; PCP Family Medicine; Referring Provider Family Medicine; Visit Provider Family Medicine
DX: C49.9 Malignant neoplasm of connective and soft tissue, unspecified; R22.41 Localized swelling, mass and lump, right lower limb; M79.604 Pain in right leg
CPT/HCPCS: 73720

== ENCOUNTER 2022-07-29 22:29 | Inpatient (IN) | payer MEDICARE, OTHER, SELFPAY ==
[2021-06-27 21:03] VITALS: BMI 24.8
[2022-07-29 22:34] VITALS: BP 114/58; PULSE 95; RESP 22; TEMP 37.6; O2SAT 100; BMI 24.4
[2022-07-29 23:21] LABS: Lactate (Lactic Acid) 1.7 mmol/L (0.7-2.1)
[2022-07-29 23:23] LABS: Add Manual Diff / Slide Review NO; Basophils Absolute Auto 0 /uL (0-100); Basophils Percent Auto 0.2 % (0-2); Eosinophils Absolute Auto 200 /uL (0-450); Eosinophils Percent Auto 0.8 % (2-4); Hematocrit 42.5 % (41-53); Hemoglobin 14.8 g/dL (13.5-17.5); Lymphocytes Absolute Auto 900 /uL (1100-4500); Lymphocytes Percent Auto 4.1 % (25-40); Mean Corpuscular HGB Conc 34.8 % (30-36); Mean Corpuscular Hemoglobin 32.2 PG (26-34); Mean Corpuscular Volume 92.5 fL (80-100); Monocytes Absolute Auto 1400 /uL (0-900); Monocytes Percent Auto 6.8 % (3-14); Neutrophils Absolute Auto 18400 /uL (1500-7000); Neutrophils Percent Auto 88.1 % (50-75); Platelet Count 354 X10^3/uL (150-400); Red Cell Distribution Width 12.6 % (11.6-14.8); White Blood Cell Count 20.9 X10^3/uL (4.5-11.0)
[2022-07-29 23:31] LABS: Alanine Aminotransferase 20 IU/L (<50); Alkaline Phosphatase 111 U/L (38-126); Aspartate Aminotransferase 19 IU/L (17-59); BUN Creatinine Ratio 23.4 (6-22); Bilirubin Total 0.8 mg/dL (0.2-1.3); Blood Urea Nitrogen 15 mg/dL (9-20); Calcium 8.3 mg/dL (8.4-10.2); Carbon Dioxide 20 mmol/L (22-32); Chloride 103 mmol/L (98-107); Estimated Glomerular Filt Rate > 60 mL/min (>60); Glucose 154 mg/dL (80-110); HEMOLYSIS < 15 (0-50); Potassium 3.8 mmol/L (3.4-5.1); Sodium 134 mmol/L (137-145); Total Protein 6.6 g/dL (6.3-8.2)
[2022-07-29 23:48] LABS: Procalcitonin 0.25 ng/mL (<0.5)
[2022-07-30] VITALS (15 sets, daily range): BP systolic 79–117; BP diastolic 55–75; PULSE 69–81; RESP 17–18; TEMP 36.7–37.9; O2SAT 94–100; BMI 25.4
--- NOTE | 2022-07-30 03:37 | ED.GENADULT ---
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 Initially had 2 GAMAL drains 1 had been removed as it was minimally draining. The 2nd 1 had been decreasing until approximately 48 hours ago and then noticed increasing output approximately 40 cc yesterday and today 140 cc. The output is serosanguineous/purulent. He has increased pain and swelling in the right upper thigh with increasing erythema around the surgical site and dependent the posterior thigh. He does not report fevers, nausea, vomiting, diarrhea, headaches, weakness. He does note the pain has increased slightly over the last 24 hours. Related Data Home Medications Medication Instructions Recorded Confirmed levothyroxine 100 mcg tablet 100 mcg PO DAILY 06/27/21 09/10/21 amiodarone PO BID 09/10/21 09/10/21 Previous Rx's Medication Instructions Recorded apixaban 5 mg tablet (Eliquis) 5 mg PO BID #60 tabs 06/29/21 Allergies Allergy/AdvReac Type Severity Reaction Status Date / Time No Known Drug Allergies Allergy Verified 09/10/21 16:08 Review of Systems Review of Systems Narrative: Remainder of complete review of systems is otherwise unremarkable except for that included in the HPI. Patient History Medical History (Updated 07/30/22 @ 08:03 by Sissy Briceño MD) Atrial fibrillation Melanoma Sarcoma Surgical History S/P skin cancer resection Social History household members: spouse Smoking Status: Never smoker Smoking Status: Never smoker alcohol intake frequency: a few times a month Substance Use Type: marijuana Exam Initial Vital Signs Initial Vital Signs: Vital Signs Temperature 99.6 F 07/29/22 22:34 Pulse Rate 95 H 07/29/22 22:34 Respiratory Rate 22 07/29/22 22:34 Blood Pressure 114/58 L 07/29/22 22:34 Pulse Oximetry 100 01/16/23 22:34 Oxygen Delivery Method 07/29/22 22:34 General: Healthy appearing, in no acute distress. Able to give a complete and coherent history. Well-nourished well-developed HEENT: Moist mucous membranes, normal sclera with reactive pupils, Respiratory: Lungs are clear to auscultation, no wheezing no rales no rhonchi. Full and symmetrical air movement Cardiac: Regular rate and rhythm no murmurs no bruits Abdomen: Soft, nontender, good bowel tones, no flank pain Skin: Warm and dry, no rashes Neurologic: Grossly neurologically intact with no obvious asymmetries or abnormalities Extremities: Right thigh with postop incision. Right leg is slightly more swollen than the left leg at 2 weeks postop. Right thigh with minor erythema no drainage from the wound patient describes increasing fullness in the thigh overall. Psych: Cooperative, appropriate insight and affect Bedside ultrasound of the right thigh does not show any specific abscess or loculated fluid there is more edema/fluid layering through tissues Course Orders Ordered: ED Orders 07/30/22 03:59 Body Fluid Culture Stat 07/30/22 04:40 COVID19 -Nasal RAPID/Pre-Proc Stat Vancomycin HCl/Dextrose (Vancomycin) 1,500 mg in 300 mls @ 200 mls/hr IV Q12H DARIEL Sodium Chloride (Normal Saline 0.9%) 1,000 mls @ 250 mls/hr IV CONT DARIEL Last Admin: 07/30/22 07:18 Dose: 250 mls/hr Documented By: AM Discontinued Medications Ceftriaxone Sodium 2,000 mg/ (Sodium Chloride) 100 mls @ 200 mls/hr IV NOW ONE Stop: 07/30/22 03:59 Last Infusion: 07/30/22 05:05 Dose: 0 mls/hr Documented By: Admin: 07/30/22 04:27 Dose: 200 mls/hr Documented By: GIANLUCA Vancomycin HCl/Dextrose (Vancomycin) 2,000 mg in 400 mls @ 200 mls/hr IV NOW ONE Stop: 07/30/22 06:59 Last Infusion: 07/30/22 06:25 Dose: 200 mls/hr Documented By: Admin: 07/30/22 05:04 Dose: 200 mls/hr Documented By: SHEREEN Sodium Chloride (Normal Saline 0.9%) 1,000 mls @ 2,000 mls/hr IV BOLUS ONE Stop: 07/30/22 06:04 Last Infusion: 07/30/22 06:24 Dose: 1,000 mls/hr Documented By: Admin: 07/30/22 05:49 Dose: 2,000 mls/hr Documented By: SHEREEN Ketorolac Tromethamine (Ketorolac 30 Mg/Ml Vial) 15 mg IV NOW ONE Stop: 07/30/22 03:59 Last Admin: 07/30/22 04:26 Dose: 15 mg Documented By: GIANLUCA Vancomycin HCl (Vancomycin Per Pharmacy) 1 request MISC NOW ONE Stop: 07/30/22 03:59 Last Admin: 07/30/22 05:23 Dose: Not Given Documented By: SHEREEN Vital Signs Vital signs: Vital Signs - 8 hr 07/30/22 02:37 07/30/22 03:00 07/30/22 03:00 Pulse Rate 75 75 Blood Pressure 104/75 Pulse Oximetry 98 100 07/30/22 03:30 07/30/22 03:30 07/30/22 04:00 Pulse Rate 81 71 Blood Pressure 111/66 Pulse Oximetry 98 99 07/30/22 04:01 07/30/22 04:31 07/30/22 05:00 Pulse Rate 71 Blood Pressure 112/69 103/67 Pulse Oximetry 07/30/22 05:30 07/30/22 05:31 07/30/22 05:41 Pulse Rate 75 74 Blood Pressure 79/55 L Pulse Oximetry 94 94 07/30/22 05:45 Pulse Rate Blood Pressure 107/58 L Pulse Oximetry Medical Decision Making Lab Data Result diagrams: 07/29/22 20:55 07/29/22 20:55 Labs: Lab Results 07/29/22 07/29/22 07/29/22 Range/Units 20:55 20:55 20:55 WBC 20.9 H (4.5-11.0) X10^3/uL RBC 4.60 (4.5-5.9) X10^6/uL Hgb 14.8 (13.5-17.5) g/dL Hct 42.5 (41-53) % MCV 92.5 (80-100) fL MCH 32.2 (26-34) PG MCHC 34.8 (30-36) % RDW 12.6 (11.6-14.8) % Plt Count 354 (150-400) X10^3/uL Neut % (Auto) 88.1 H (50-75) % Lymph % (Auto) 4.1 L (25-40) % [place] % (Auto) 6.8 (3-14) % Eos % (Auto) 0.8 L (2-4) % Baso % (Auto) 0.2 (0-2) % Neut # (Auto) 17234 H (0690-3746) /uL Lymph # (Auto) 900 L (6005-6930) /uL [place] # (Auto) 1400 H (0-900) /uL Eos # (Auto) 200 (0-450) /uL Baso # (Auto) 0 (0-100) /uL Sodium 134 L (137-145) mmol/L Potassium 3.8 (3.4-5.1) mmol/L Chloride 103 (98-107) mmol/L Carbon Dioxide 20 L (22-32) mmol/L BUN 15 (9-20) mg/dL Creatinine 0.64 L (0.66-1.25) mg/dL Estimated GFR > 60 (>60) mL/min BUN/Creatinine Ratio 23.4 H (6-22) Glucose 154 H (80-110) mg/dL Lactate 1.7 (0.7-2.1) mmol/L Calcium 8.3 L (8.4-10.2) mg/dL Total Bilirubin 0.8 (0.2-1.3) mg/dL AST 19 (17-59) IU/L ALT 20 (<50) IU/L Alkaline Phosphatase 111 (38-126) U/L Total Protein 6.6 (6.3-8.2) g/dL Procalcitonin 0.25 (<0.5) ng/mL SARS-CoV-2 (PCR) (Negative) 07/30/22 Range/Units 04:40 WBC (4.5-11.0) X10^3/uL RBC (4.5-5.9) X10^6/uL Hgb (13.5-17.5) g/dL Hct (41-53) % MCV (80-100) fL MCH (26-34) PG MCHC (30-36) % RDW (11.6-14.8) % Plt Count (150-400) X10^3/uL Neut % (Auto) (50-75) % Lymph % (Auto) (25-40) % [place] % (Auto) (3-14) % Eos % (Auto) (2-4) % Baso % (Auto) (0-2) % Neut # (Auto) (3750-8153) /uL Lymph # (Auto) (2738-7619) /uL [place] # (Auto) (0-900) /uL Eos # (Auto) (0-450) /uL Baso # (Auto) (0-100) /uL Sodium (137-145) mmol/L Potassium (3.4-5.1) mmol/L Chloride (98-107) mmol/L Carbon Dioxide (22-32) mmol/L BUN (9-20) mg/dL Creatinine (0.66-1.25) mg/dL Estimated GFR (>60) mL/min BUN/Creatinine Ratio (6-22) Glucose (80-110) mg/dL Lactate (0.7-2.1) mmol/L Calcium (8.4-10.2) mg/dL Total Bilirubin (0.2-1.3) mg/dL AST (17-59) IU/L ALT (<50) IU/L Alkaline Phosphatase (38-126) U/L Total Protein (6.3-8.2) g/dL Procalcitonin (<0.5) ng/mL SARS-CoV-2 (PCR) Negative (Negative) MDM Narrative Medical decision making narrative: CC: Increasing pain, redness and drainage from right osteosarcoma surgical site: New problem, uncertain prognosis complication to limb and life is possible Complicating co-morbidities: Chronic atrial fibrillation and anticoagulation Corroborating data: Data collected from: patient, and Medical records reviewed: Records from [facility] available, records from [facility] are reviewed Differential considered: DVT, cellulitis, deep tissue abscess, sepsis Exam documented above, pertinent findings include: Redness warmth and swelling to the affected thigh Lab Test results independently reviewed as above. Pertinent findings: COVID is negative CBC shows a white count of 20.9 with left shift no significant anemia Chemistries are unremarkable Procalcitonin is normal at 0.25 Lactic acid is normal at 1.7 Consultations: Orthopedic surgeon, Dr. Nate Ruelas at [facility]. Review findings agreed with current antibiotic choices but did feel that transfer to [facility] for management of postop infection by his primary surgeon would be most appropriate. Recommended [facility]. Currently no beds are available. Patient has been admitted to his primary care physician at [facility]. Will be placed on waiting list as soon as bed is available at [facility] patient will need to be transferred. Care is reviewed with the on-call physician with plan to turn over care to primary physician, Dr. Muniz in the morning. [address] Muniz. When bed is available for transfer, transfer center will call to begin arrangements Treatments: IV antibiotics, ceftriaxone, vancomycin Discussion: Findings reviewed with patient's . They did agree with hospitalization. Patient has been admitted and after paging at 430 this morning and call returned at 8:00 a.m. this morning, plan with orthopedic service will be to transfer him once beds are available. Diagnosis: Postop infection. Antibiotic started. Blood cultures as well as superficial wound culture and culture from wound drainage have all been sent. Disposition: see below, along with detailed discharge instructions that have been reviewed with patient as well as indications for ED re-evaluation and additional outpatient follow up Discharge Plan Departure Patient Disposition: Admitted As Inpatient Clinical Impression: Osteosarcoma Post op infection Qualifiers: Encounter type: initial encounter Postoperative infection type: deep incisional surgical site Qualified Code(s): T81.42XA - Infection following a procedure, deep incisional surgical site, initial encounter Admit Date/Time: 07/30/22 05:45 Admit Provider: Dillon Muniz
[2022-07-30] MEDS: KETOROLAC 30 MG/ML VIAL 15 MG IV (04:26)
[2022-07-30] MEDS: cefTRIAXone 2,000 MG in SODIUM CHLORIDE 0.9% 100 ML 200 MG IV (04:27)
[2022-07-30] MEDS: VANCOMYCIN 2,000 MG/400 ML PIGGYBACK 200 MG IV (05:04)
[2022-07-30 05:28] LABS: COVID19 -Nasal RAPID Negative (Negative)
[2022-07-30] MEDS: SODIUM CHLORIDE 0.9% 1,000 ML 2000 ML IV (05:49)
[2022-07-30] MEDS: SODIUM CHLORIDE 0.9% 1,000 ML 250 ML IV (07:18)
[2022-07-30] MEDS: APIXABAN 5 MG TABLET PO (09:25)
[2022-07-30] MEDS: ACETAMINOPHEN 325 MG TABLET 650 MG PO ×3 (09:25→20:20)
[2022-07-30] MEDS: LEVOTHYROXINE 100 MCG TABLET PO (09:26)
[2022-07-30] MEDS: VANCOMYCIN 1,250 MG/250 ML PIGGYBACK 250 MG IV ×2 (13:11→20:19)
--- NOTE | 2022-07-30 13:22 | P.HP_ITS ---
History of Present Illness History of Present Illness Date Patient Seen: 07/30/22 Time Patient Seen: 08:15 Date of Onset of Symptoms: 07/29/22 Chief complaint: Surgery 07/18, Thinks infected tube Narrative: Patient is a 66-year-old male with history of metastatic melanoma who was diagnosed with his 2nd osteosarcoma of his right leg. After radiation and chemo he was operated on 2 weeks ago proximally by [facility] orthopedic surgery. [place] like surgery went well. Had no major issues. No other significant change. No fevers or chills but started feeling like he was discharging more through the GAMAL drain. And was worried that this might be worsening. He was having no fevers no chills no headaches. No nausea no vomit ing. Has been having increased pain in his right upper thigh since surgery. Some redness. He is not had any diarrhea urinary complaints chest pain cough shortness of breath or other changes. Past medical history is significant for melanoma, history of sarcoma, atrial fibrillation Past surgical history melanoma removed 2012, right leg sarcoma removed 07/02/2011 Family history dad with prostate cancer, dementia, deafness, brother hypertension, mother dementia Patient History Medical History Atrial fibrillation Melanoma Sarcoma Surgical History S/P skin cancer resection Family & Social History Social History: household members spouse Prior Living Arrangements House Safety & Behavioral: Feels Safe in Current Yes Environment Been Physically Hurt or No Threatened By a Person Tobacco & Substance use: Smoking Status Never smoker alcohol intake frequency a few times a month Substance Use Type marijuana Meds Home Medications and Allergies Home Medications Medication Instructions Recorded Confirmed Type levothyroxine 100 mcg tablet 100 mcg PO DAILY 06/27/21 07/30/22 History apixaban 5 mg tablet (Eliquis) 5 mg PO BID #60 tabs 06/29/21 07/30/22 Rx Allergies Allergy/AdvReac Type Severity Reaction Status Date / Time No Known Drug Allergies Allergy Verified 09/10/21 16:08 Review of Systems Review of Systems Narrative: All negative except above Exam Vital Signs (past 8 hours): - 07/30/22 05:30 07/30/22 05:31 07/30/22 05:41 Temperature Pulse Rate 75 74 Respiratory Rate Blood Pressure 79/55 L Pulse Oximetry 94 94 Oxygen Flow Rate 07/30/22 05:45 07/30/22 06:00 07/30/22 06:00 Temperature Pulse Rate 70 Respiratory Rate Blood Pressure 107/58 L 101/61 Pulse Oximetry 95 Oxygen Flow Rate 07/30/22 07:06 Temperature 99.6 F Pulse Rate 76 Respiratory Rate 17 Blood Pressure 114/72 Pulse Oximetry 97 Oxygen Flow Rate 0 Oxygen Delivery Method Room Air Oxygen Flow Rate 0 Narrative Exam Narrative: Alert interactive appropriate smiling male in no acute distress Mucous membranes moist. Neck supple without adenopathy. Lungs are clear. Heart is irregular rhythm in her but controlled rate abdomen is soft positive bowel sounds nontender. Right groin with no adenopathy. He was extensive incision from the right medial thigh to above mid calf. There is moderate erythema around this. Incision is otherwise together. Stitching appears to be appropriate. I do not feel any fluctuance or mass. Moderate purulent drainage from drainage tube. Neurologic exam is normal Objective Labs Result Diagrams: 07/29/22 20:55 07/29/22 20:55 Labs: Laboratory Results - last 24 hr 07/29/22 07/29/22 07/29/22 20:55 20:55 20:55 WBC 20.9 H RBC 4.60 Hgb 14.8 Hct 42.5 MCV 92.5 MCH 32.2 MCHC 34.8 RDW 12.6 Plt Count 354 Neut % (Auto) 88.1 H Lymph % (Auto) 4.1 L [place] % (Auto) 6.8 Eos % (Auto) 0.8 L Baso % (Auto) 0.2 Neut # (Auto) 05653 H Lymph # (Auto) 900 L [place] # (Auto) 1400 H Eos # (Auto) 200 Baso # (Auto) 0 Sodium 134 L Potassium 3.8 Chloride 103 Carbon Dioxide 20 L BUN 15 Creatinine 0.64 L Estimated GFR > 60 BUN/Creatinine Ratio 23.4 H Glucose 154 H Lactate 1.7 Calcium 8.3 L Total Bilirubin 0.8 AST 19 ALT 20 Alkaline Phosphatase 111 Total Protein 6.6 Procalcitonin 0.25 SARS-CoV-2 (PCR) 07/30/22 04:40 WBC RBC Hgb Hct MCV MCH MCHC RDW Plt Count Neut % (Auto) Lymph % (Auto) [place] % (Auto) Eos % (Auto) Baso % (Auto) Neut # (Auto) Lymph # (Auto) [place] # (Auto) Eos # (Auto) Baso # (Auto) Sodium Potassium Chloride Carbon Dioxide BUN Creatinine Estimated GFR BUN/Creatinine Ratio Glucose Lactate Calcium Total Bilirubin AST ALT Alkaline Phosphatase Total Protein Procalcitonin SARS-CoV-2 (PCR) Negative Assessment & Plan Assessment & Plan narrative: Cellulitis wound infection right leg status post osteosarcoma removal. Actually already seems to be slightly better since I saw earlier this morning. Culture pending. On vanco and Rocephin. Should be good coverage. Recheck tomorrow. Apparently surgeon would like him transferred. This point will see what happens currently not a bed. History of atrial fibrillation. Rate is well controlled. On Eliquis will continue. History of metastatic melanoma stable at this time. No change. GI prophylaxis no need at this time. DVT prophylaxis on Eliquis. Disposition. Hopefully 48 hours antibiotics and discharged to home with follow-up with surgeon will see how things 40 minutes spent with dictation orders patient nursing and discussion with emergency room Time Spent With Patient Critical Care time: I spent a total of [] minutes of critical care time on this patient's care today; this time is exclusive of procedural time. Quality VTE Deep Vein Thrombosis/Pulmonary Embolism Present on Admission: No
--- NOTE | 2022-07-30 16:02 | CM.DANOTE ---
Patient is a 65 yo male who was admitted on 07/30/22 today for Infection. Pt has [place] and [place] for [place] and his PCP is Dr. Dillon Muniz. EMR was reviewed. Per MD, pt with hx of recent surgery at on 07/18/22 and likely infection. Surgeon was consulted and they felt pt appropriate for hospital transfer for higher level of care and since they have been working with pt but currently no beds. No bedside assessment completed at this time due to triage needs and attempts at hospital transfer. Pt currently on IV-Abx and seems to have some improvement. Pt last admitted in Jun 2021 and was able to d/c home with spouse and no needs as he has been quite independent. Plan: SW to follow closely for attempts at hospital transfer and if pt is not transferred then bedside assessment to confirm safe d/c plan to home. TETO Lamas Discharge Planning/Care Management Advanced directive, confirm from FAMILY Start: 07/30/22 09:44 Freq: Q24H Status: Active Protocol: Document 07/30/22 09:44 CM (Rec: 07/30/22 09:54 CM [id number]) Advance Directive, confirm on record Time 09:54 Person contacted Pt Copy received No CM Discharge Assessment Start: 07/30/22 16:00 Freq: Status: Active Protocol: Document 07/30/22 16:01 BF (Rec: 07/30/22 16:01 BF [id number]) Discharge Planning Assessment Assigned Balancer Scale TETO Torres DPOA/Assigned Designee Name spouse Rony Contact Information [phone] Advance Directives? Yes Advance Directives on File No History Provided By Patient,Medical Record Has Patient been admitted in last 30 No days? Prior Living Arrangements House Household Members spouse Type of transporation used prior to Drives own vehicle admit Independent with ADL's Yes Is patient alert and oriented? Yes Caregiver for Another No Patient/Family Preference OP PT Therapy,OP OT Therapy,OP [employer] Therapy Barriers to Discharge No Discharge Plan Transfer to Higher Level of Care Transportation Arrangement Additional Comment pending evaluations Review Status In Process Please Provide Date Initial DC 07/30/22 Assessment Was Performed Next Review Type Continued Stay Review
--- NOTE | 2022-07-30 19:02 | PM.PN.1 ---
Subjective Subjective Date Patient Seen: 07/30/22 Time Patient Seen: 19:02 Exam Vital Signs (past 8 hours): - 07/30/22 17:00 Temperature 100.3 F H Pulse Rate 81 Respiratory Rate 17 Blood Pressure 117/70 Pulse Oximetry 99 Oxygen Flow Rate 0 Oxygen Delivery Method Room Air Oxygen Flow Rate 0 Narrative Exam Narrative: No change in exam Objective Labs Result Diagrams: 07/29/22 20:55 07/29/22 20:55 Labs: Laboratory Results - last 24 hr 07/29/22 07/29/22 07/29/22 20:55 20:55 20:55 WBC 20.9 H RBC 4.60 Hgb 14.8 Hct 42.5 MCV 92.5 MCH 32.2 MCHC 34.8 RDW 12.6 Plt Count 354 Neut % (Auto) 88.1 H Lymph % (Auto) 4.1 L [place] % (Auto) 6.8 Eos % (Auto) 0.8 L Baso % (Auto) 0.2 Neut # (Auto) 58767 H Lymph # (Auto) 900 L [place] # (Auto) 1400 H Eos # (Auto) 200 Baso # (Auto) 0 Sodium 134 L Potassium 3.8 Chloride 103 Carbon Dioxide 20 L BUN 15 Creatinine 0.64 L Estimated GFR > 60 BUN/Creatinine Ratio 23.4 H Glucose 154 H Lactate 1.7 Calcium 8.3 L Total Bilirubin 0.8 AST 19 ALT 20 Alkaline Phosphatase 111 Total Protein 6.6 Procalcitonin 0.25 SARS-CoV-2 (PCR) 07/30/22 04:40 WBC RBC Hgb Hct MCV MCH MCHC RDW Plt Count Neut % (Auto) Lymph % (Auto) [place] % (Auto) Eos % (Auto) Baso % (Auto) Neut # (Auto) Lymph # (Auto) [place] # (Auto) Eos # (Auto) Baso # (Auto) Sodium Potassium Chloride Carbon Dioxide BUN Creatinine Estimated GFR BUN/Creatinine Ratio Glucose Lactate Calcium Total Bilirubin AST ALT Alkaline Phosphatase Total Protein Procalcitonin SARS-CoV-2 (PCR) Negative [facility] Medical History Atrial fibrillation Melanoma Sarcoma Surgical History S/P skin cancer resection Social History household members: spouse Smoking Status: Never smoker Assessment & Plan Assessment & Plan narrative: Discussed with patient's physician at the [facility]. She feels like were okay doing what we want but she does have an hour time if needed. No other changes. Patient would prefer not to be transferred tonight. We discussed that we will contact her at [phone] which is her cell phone if there is any changes. Will follow up a.m.. Time Spent With Patient Critical Care time: I spent a total of [] minutes of critical care time on this patient's care today; this time is exclusive of procedural time. Quality VTE Deep Vein Thrombosis/Pulmonary Embolism Present on Admission: No
--- NOTE | 2022-07-30 23:39 | PC.NURSE ---
Eliquis not given. Pt is scheduled for potential surgery at and was instructed to not take it by surgeon at .
[2022-07-31] MEDS: ACETAMINOPHEN 325 MG TABLET 650 MG PO ×2 (02:14→20:46)
[2022-07-31 02:19] VITALS: BP 128/57; PULSE 74; RESP 18; TEMP 36.6; O2SAT 98
[2022-07-31] MEDS: cefTRIAXone 2,000 MG in SODIUM CHLORIDE 0.9% 100 ML 200 MG IV (04:47)
[2022-07-31] MEDS: VANCOMYCIN 1,250 MG/250 ML PIGGYBACK 250 MG IV ×3 (05:33→20:46)
[2022-07-31 06:14] LABS: C-Reactive Protein Quant 19.1 mg/dL (<1.0)
[2022-07-31 06:33] LABS: Alanine Aminotransferase 18 IU/L (<50); Alkaline Phosphatase 96 U/L (38-126); Aspartate Aminotransferase 24 IU/L (17-59); BUN Creatinine Ratio 21.9 (6-22); Bilirubin Total 0.8 mg/dL (0.2-1.3); Blood Urea Nitrogen 14 mg/dL (9-20); Calcium 8.2 mg/dL (8.4-10.2); Carbon Dioxide 20 mmol/L (22-32); Chloride 107 mmol/L (98-107); Estimated Glomerular Filt Rate > 60 mL/min (>60); Glucose 86 mg/dL (80-110); Potassium 4.4 mmol/L (3.4-5.1); Sodium 134 mmol/L (137-145); Total Protein 5.8 g/dL (6.3-8.2)
[2022-07-31 06:34] LABS: Basophils Absolute Auto 100 /uL (0-100); Basophils Percent Auto 0.3 % (0-2); Eosinophils Absolute Auto 400 /uL (0-450); Eosinophils Percent Auto 2.2 % (2-4); Hematocrit 40.2 % (41-53); Hemoglobin 13.8 g/dL (13.5-17.5); Lymphocytes Absolute Auto 800 /uL (1100-4500); Lymphocytes Percent Auto 4.1 % (25-40); Mean Corpuscular HGB Conc 34.3 % (30-36); Mean Corpuscular Hemoglobin 32.1 PG (26-34); Mean Corpuscular Volume 93.4 fL (80-100); Monocytes Absolute Auto 1200 /uL (0-900); Monocytes Percent Auto 5.6 % (3-14); Neutrophils Absolute Auto 18000 /uL (1500-7000); Neutrophils Percent Auto 87.8 % (50-75); Red Blood Cell Count 4.31 X10^6/uL (4.5-5.9); Red Cell Distribution Width 12.8 % (11.6-14.8); White Blood Cell Count 20.5 X10^3/uL (4.5-11.0)
--- NOTE | 2022-07-31 07:00 | PC.NURSE ---
Patient developed a red, raised rash over his chest, back, arms, and legs. Patient denies itching except his upper chest and back where he says he was sweating. Patient declined his Eliquis last night because he said his surgeon told him not to take it in case he has surgery . Dr Henrry Muniz notified of abave. Diane DCd as ordered. Dr Muniz stated he will see patient later this am.
[2022-07-31 07:21] LABS: Add Manual Diff / Slide Review SLIDE REVIEW; Erythrocyte Sedimentation Rate 25 MM/HR (0-15)
[2022-07-31 07:29] LABS: RBC Morphology Normal Morphology
[2022-07-31 07:30] LABS: Platelet Count 343 X10^3/uL (150-400)
--- NOTE | 2022-07-31 07:51 | P.PN_ITS ---
Subjective Subjective Date Patient Seen: 07/31/22 Time Patient Seen: 07:51 Interval history: Patient seen in follow-up of cellulitis. Overall feeling well. Did develop a rash last night. No other changes no fevers. Otherwise feeling well pain is less. Exam Vital Signs (past 8 hours): - 07/31/22 02:19 Temperature 97.9 F Pulse Rate 74 Respiratory Rate 18 Blood Pressure 128/57 L Pulse Oximetry 98 Oxygen Flow Rate 0 Oxygen Delivery Method Room Air Oxygen Flow Rate 0 Narrative Exam Narrative: Alert male in no acute distress. Lungs are clear heart regular rate and rhythm right leg shows essentially unchanged erythema no discharge. Objective Labs Result Diagrams: 07/31/22 04:57 07/31/22 04:57 Labs: Laboratory Results - last 24 hr 07/31/22 07/31/22 07/31/22 04:57 04:57 04:57 WBC 20.5 H RBC 4.31 L Hgb 13.8 Hct 40.2 L MCV 93.4 MCH 32.1 MCHC 34.3 RDW 12.8 Plt Count 343 Neut % (Auto) 87.8 H Lymph % (Auto) 4.1 L [place] % (Auto) 5.6 Eos % (Auto) 2.2 Baso % (Auto) 0.3 Neut # (Auto) 31369 H Lymph # (Auto) 800 L [place] # (Auto) 1200 H Eos # (Auto) 400 Baso # (Auto) 100 RBC Morphology Normal morphology ESR 25 H Sodium Potassium Chloride Carbon Dioxide BUN Creatinine Estimated GFR BUN/Creatinine Ratio Glucose Calcium Total Bilirubin AST ALT Alkaline Phosphatase C-Reactive Protein 19.1 H Total Protein 07/31/22 04:57 WBC RBC Hgb Hct MCV MCH MCHC RDW Plt Count Neut % (Auto) Lymph % (Auto) [place] % (Auto) Eos % (Auto) Baso % (Auto) Neut # (Auto) Lymph # (Auto) [place] # (Auto) Eos # (Auto) Baso # (Auto) RBC Morphology ESR Sodium 134 L Potassium 4.4 Chloride 107 Carbon Dioxide 20 L BUN 14 Creatinine 0.64 L Estimated GFR > 60 BUN/Creatinine Ratio 21.9 Glucose 86 Calcium 8.2 L Total Bilirubin 0.8 AST 24 ALT 18 Alkaline Phosphatase 96 C-Reactive Protein Total Protein 5.8 L [facility] Medical History Atrial fibrillation Melanoma Sarcoma Surgical History S/P skin cancer resection Social History household members: spouse Smoking Status: Never smoker Assessment & Plan Time Spent With Patient Critical Care time: I spent a total of [] minutes of critical care time on this patient's care today; this time is exclusive of procedural time. Quality VTE Deep Vein Thrombosis/Pulmonary Embolism Present on Admission: No
[2022-07-31] MEDS: HYDROCODONE/ACET 5/325 TABLET 1 TAB PO ×2 (09:22→15:15)
[2022-07-31] MEDS: LEVOTHYROXINE 100 MCG TABLET PO (09:22)
[2022-07-31] MEDS: levoFLOXacin 750 MG/150 ML PIGGYBACK 100 MG IV (09:23)
[2022-07-31 12:00] VITALS: BP 95/66; PULSE 89; RESP 17; TEMP 36.9; O2SAT 96
[2022-07-31] MEDS: VANCOMYCIN TROUGH 1 REQUEST MISC (12:50)
[2022-07-31 13:46] VITALS: BP 114/70; PULSE 72; RESP 17; TEMP 37.3; O2SAT 91
[2022-07-31 14:04] LABS: Vancomycin Trough 13.7 ug/mL (10-20)
--- NOTE | 2022-07-31 14:32 | P.DS_ITS ---
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 After radiation and chemo he was operated on 2 weeks ago proximally by [facility] orthopedic surgery. [place] like surgery went well. Had no major issues. No other significant change. No fevers or chills but started feeling like he was discharging more through the GAMAL drain. And was worried that this might be worsening. He was having no fevers no chills no headaches. No nausea no vomit ing. Has been having increased pain in his right upper thigh since surgery. Some redness. He is not had any diarrhea urinary complaints chest pain cough shortness of breath or other changes. Past medical history is significant for melanoma, history of sarcoma, atrial fibrillation Past surgical history melanoma removed 2012, right leg sarcoma removed 07/02/2011 Family history dad with prostate cancer, dementia, deafness, brother hypertension, mother dementia Discharge Providers Provider Date of admission: 07/30/22 05:45 Discharge Date: 08/01/22 Primary care physician: Dillon Muniz MD Discharge provider: Dillon Muniz MD Summary Hospital Course Discharge Diagnosis: Cellulitis/wound infection right leg History of atrial fibrillation History of metastatic melanoma History of right leg sarcoma Hospital Course: Cellulitis/wound infection right leg. He was admitted and brought to the floor from the emergency room. Evaluation was done at that time. Patient had significant erythema primarily inferior to the wound along the medial aspect. And knee was slightly erythematous. There was no fluctuance no drainage from the wound. Culture was obtained both from his wound drainage and from blood. Blood cultures remain negative throughout his admission. And on day 2 staph aureus began growing. Patient developed on day 2 a rash over his chest which primarily looks like a drug rash. [place] to be secondary to Rocephin. Rocephin was discontinued and after discussion with pharmacist elected for Levaquin. As of culture being positive with staph vanco should cover that well does not appear to be MRSA and Levaquin was discontinued. Due to the fact that his white count basically remained in the 20,000 range although he was feeling better after discussion with his surgeon at the [facility] was elected for him to be transferred there. No beds were available and Dr. Ugalde has surger y set up for . After discussion we elected to continue IV antibiotics here. Will be discharged in the morning he will be transferred by private vehicle to the [facility]. Patient comfortable with this all set up. No other changes. He tolerated all other therapy well. History of atrial fibrillation. Patient had done well. Actually appears to be in sinus rhythm at this time. He has no other major issues or concerns. As of Friday night due to the fact that we were concerned that he might have surgery his anticoagulation was discontinued. Patient otherwise well had no other issue. History of metastatic melanoma not active at this time. History of right leg sarcoma removed. As per specialists. Not other issue other than previous surgery. Exam Vital Signs (past 8 hours): - 07/31/22 12:00 07/31/22 13:46 Temperature 98.5 F 99.1 F Pulse Rate 89 72 Respiratory Rate 17 17 Blood Pressure 95/66 114/70 Pulse Oximetry 96 91 Oxygen Flow Rate 0 Oxygen Delivery Method Room Air Oxygen Flow Rate 0 Narrative Exam Narrative: Alert male smiling interactive feeling better in no acute distress Mucous membranes moist neck supple without adenopathy lungs are clear heart is regular rate and rhythm abdomen benign right leg with erythema which actually is maybe improved around his knee and up on the superior aspect of the wounds there is moderate erythema below that. With no other changes. Objective Labs Result Diagrams: 07/31/22 04:57 07/31/22 04:57 Labs: Laboratory Results - last 24 hr 07/31/22 07/31/22 07/31/22 04:57 04:57 04:57 WBC 20.5 H RBC 4.31 L Hgb 13.8 Hct 40.2 L MCV 93.4 MCH 32.1 MCHC 34.3 RDW 12.8 Plt Count 343 Neut % (Auto) 87.8 H Lymph % (Auto) 4.1 L [place] % (Auto) 5.6 Eos % (Auto) 2.2 Baso % (Auto) 0.3 Neut # (Auto) 04135 H Lymph # (Auto) 800 L [place] # (Auto) 1200 H Eos # (Auto) 400 Baso # (Auto) 100 RBC Morphology Normal morphology ESR 25 H Sodium Potassium Chloride Carbon Dioxide BUN Creatinine Estimated GFR BUN/Creatinine Ratio Glucose Calcium Total Bilirubin AST ALT Alkaline Phosphatase C-Reactive Protein 19.1 H Total Protein Vancomycin Trough 07/31/22 07/31/22 04:57 12:40 WBC RBC Hgb Hct MCV MCH MCHC RDW Plt Count Neut % (Auto) Lymph % (Auto) [place] % (Auto) Eos % (Auto) Baso % (Auto) Neut # (Auto) Lymph # (Auto) [place] # (Auto) Eos # (Auto) Baso # (Auto) RBC Morphology ESR Sodium 134 L Potassium 4.4 Chloride 107 Carbon Dioxide 20 L BUN 14 Creatinine 0.64 L Estimated GFR > 60 BUN/Creatinine Ratio 21.9 Glucose 86 Calcium 8.2 L Total Bilirubin 0.8 AST 24 ALT 18 Alkaline Phosphatase 96 C-Reactive Protein Total Protein 5.8 L Vancomycin Trough 13.7 PFSH Medical History Atrial fibrillation Melanoma Sarcoma Surgical History S/P skin cancer resection Social History household members: spouse Smoking Status: Never smoker Discharge Assessment & Plan Assessment and Plan Assessment: Cellulitis wound infection Plan of Treatment: Continue vancomycin for presumed Staph aureus infection until discharge in a.m. and private transfer to [facility] for surgery Discharge Plan Discharge Plan Patient Disposition: Released, Other Provider Discharge Comment: Patient will discharge at 7:00 a.m. and be transferred by private vehicle to [facility]. Has appointment set up with surgeon for surgery. Discharge orders & Medications Discharge Orders: Discharge (Order); Ordered 08/01/22 Ordered By: Dillon Muniz Prescriptions: No Action levothyroxine 100 mcg tablet 100 mcg PO DAILY Eliquis 5 mg Tablet 5 mg PO BID Qty: 60 0RF Follow up/Referrals: Dillon Muniz MD [Primary Care Provider] - 08/07/22 (Patient will call for a ppointment with either il or Dr. Devine) Discharge Health Status Multidrug resistant organism: No MDRO Precautions: [place] Diet/Activity/Treatments Diet: Diet as Tolerated Skin/Wound/Dressing Care Report to your healthcare provider any signs of infection, such as:: chills, fever, night sweats, increased pain, unusual drainage and unusual redness Discharge Data Primary Care Provider: Dillon Muniz VTE Deep Vein Thrombosis/Pulmonary Embolism Present on Admission: No
[2022-07-31 20:24] VITALS: BP 123/66; PULSE 75; RESP 19; TEMP 37.5; O2SAT 98
[2022-08-01] MEDS: ACETAMINOPHEN 325 MG TABLET 650 MG PO (02:12)
[2022-08-01 03:37] VITALS: BP 105/61; PULSE 67; RESP 17; TEMP 37.2; O2SAT 98
[2022-08-01] MEDS: VANCOMYCIN 1,250 MG/250 ML PIGGYBACK 250 MG IV (04:36)
[2022-08-01] MEDS: LEVOTHYROXINE 100 MCG TABLET PO (06:02)
[2022-08-02 15:31] LABS: Albumin 3.4 g/dL (3.5-5.0); Albumin Globulin Ratio 1.1 (1.0-2.8); Globulin 3.2 g/dL (1.7-4.1)
[2022-08-02 16:46] LABS: Albumin Globulin Ratio 1.1 (1.0-2.8); Globulin 2.8 g/dL (1.7-4.1); HEMOLYSIS 20 (0-50)
== END 2022-08-01 07:20 | disposition short-term general hospital (02) | DRG 863 ==
LOC: ED 07-30 02:24 → AC 07-30 05:46
PROVIDERS: Admitting Provider Family Medicine; Emergency Provider Emergency Medicine; Family Provider Family Medicine; PCP Family Medicine; Referring Provider Emergency Medicine; Visit Provider Family Medicine
DX: T81.49XA Infection following a procedure, other surgical site, initial encounter (principal); L03.115 Cellulitis of right lower limb; I48.91 Unspecified atrial fibrillation; B95.61 Methicillin susceptible Staphylococcus aureus infection as the cause of diseases classified elsewhere; Z79.01 Long term (current) use of anticoagulants; Z85.830 Personal history of malignant neoplasm of bone
CPT/HCPCS: 36415; 80053; 80202; 83605; 84145; 85025; 85651; 86140; 87040; 87070; 87075; 87077; 87147; 87186; 87205; 87635; 96365; 96367; 96375; 99284; C9803; J0696; J1885; J1956

== ENCOUNTER → 2024-06-09 12:20 | Outpatient (CLI) | payer MEDICARE, OTHER, SELFPAY ==
[2022-07-30 08:20] VITALS: BMI 25.4
--- NOTE | 2024-06-09 12:23 | DI.US.S_ITS ---
PROCEDURE: US SCROTUM INDICATIONS: TESTICULAR SWELLING TECHNIQUE: Real-time scanning was performed of the scrotum and testicles, with image documentation. Color and pulse Doppler interrogation was performed of both testicles. COMPARISON: None. FINDINGS: Right: Testicle is normal in size at 2.1 x 3.6 x 3.8 cm, and homogenous in echotexture except for tubular ectasia. Epididymis is enlarged in overall size and lobulated in morphology due to presence of multiple prominent cysts the largest of which measures up to 3.9 cm in maximal dimension. No significant hydrocele or varicoceles. Overlying scrotal skin is normal in thickness. Left: Testicle is normal in size at 1.8 x 2.9 x 3.7 cm, and homogeneous in echotexture except for tubular ectasia. Epididymis is enlarged in overall size and lobulated in morphology due to presence of scattered epididymal cysts, measuring up to 1.9 cm. . No hydrocele or varicoceles. Overlying scrotal skin is normal in thickness. Doppler: Color and pulse Doppler demonstrate normal and symmetric arterial flow in both testicles. IMPRESSION: Bilateral testicular tubular ectasias, no testicular mass, torsion, or inflammation appears present. Bilateral epididymal enlargement by multiple cysts, significantly larger on the right than the left. No sonographic evidence of infection within the CIS is found. Dictated by: Micheal Mccauley M.D. on 06/09/2024 at 14:22 Approved by: Micheal Mccauley M.D. on 06/09/2024 at 14:26
== END ==
PROVIDERS: Family Provider Family Medicine; PCP Family Medicine; Referring Provider Family Medicine; Visit Provider Family Medicine
DX: N50.89 Other specified disorders of the male genital organs (principal); N50.3 Cyst of epididymis
CPT/HCPCS: 76870; 93975